=== PATIENT | female | born 2000 | race Hispanic/Latino ===

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

== ENCOUNTER 2019-12-03 07:37 | Inpatient (IN) | payer OTHER ==
[~2019-12-03] VITALS: Ht 162.6 cm; Wt 76.2 kg
[2019-12-03] MEDS ORDERED: KETOROLAC TROMETHAMINE 30 MG/ML VIAL IV STA (08:05)
[2019-12-03] MEDS ORDERED: SODIUM CHLORIDE 0.9% 1000ML 1,000 ML IV STA (08:05)
[2019-12-03 08:16] LABS: BASOPHILS # (AUTO) 0.1 (0.0-0.1); BASOPHILS % 0.3 % (0.0-1.0); EOSINOPHILS % 0.1 % (0.0-6.0); HEMATOCRIT 36.9 % (34.2-44.1); HEMOGLOBIN 12.8 g/dL (12.0-16.0); LYMPHOCYTES # (AUTO) 1.1 (1.0-3.2); LYMPHOCYTES % 6.2 % (18.0-39.1); MEAN CORPUSCULAR HEMOGLOBIN 31.1 pg (28-32); MEAN CORPUSCULAR HGB CONC 34.7 g/dL (31-35); MEAN CORPUSCULAR VOLUME 89.8 fL (81-99); MONOCYTES # (AUTO) 1.2 (0.2-0.8); NEUTROPHILS # (AUTO) 14.8 (2.1-6.9); NEUTROPHILS % 85.6 % (38.7-80.0); PLATELET COUNT 233 x10e3/uL (140-360); RED BLOOD COUNT 4.11 x10e6/uL (3.6-5.1); RED CELL DISTRIBUTION WIDTH 12.2 % (11.7-14.4)
[2019-12-03 08:20] LABS: CLARITY,URINE SL CLOUDY (CLEAR); COLOR,URINE YELLOW (YELLOW); LEUKOCYTE ESTERASE ,URINE NEGATIVE (NEGATIVE); NITRITE,URINE NEGATIVE (NEGATIVE); PROTEIN,URINE DIPSTICK 2+ (NEGATIVE)
[2019-12-03 08:21] LABS: BILIRUBIN,URINE MODERATE (NEGATIVE); KETONES,URINE 2+ (NEGATIVE); URINE UROBILINOGEN 1 mg/dL (0.2 - 1)
--- NOTE | 2019-12-03 08:29 | Emergency Department Note ---
History of Present Illnes History of Present Illness Chief Complaint: Abdominal Complaints History of Present Illness This is a 19 year old female arrives to the ED with lower abdominal pain, patient states pain began yesterday and is associated with a fever. Patient denies any nausea vomiting or diarrhea and states pain is primarily along the periumbilical region.. Historian: Patient, Family Member Arrival Mode: Car Onset (how long ago): day(s) Radiation: Reports non-radiation Severity: mild Onset quality: sudden Timing of current episode: constant Progression: unchanged Chronicity: new Relieving factors: none Exacerbating factors: none Past Medical/Family History Physician Review I have reviewed the patient's past medical and family history. Any updates have been documented here. Past Medical History Recent Fever: No Clinical Suspicion of Infectio: No New/Unexplained Change in Ment: No Past Medical History: None Past Surgical History: None Social History Smoking Cessation: Never Smoker Counseling Performed: No Alcohol Use: None Any Illegal Drug Use: No Physically hurt or threatened: No Other Last Tetanus: UTD Any Pre-Existing Lines (PICC,: No Review of Systems Review of Systems Constitutional: Reports no symptoms EENTM: Reports no symptoms Cardiovascular: Reports no symptoms Respiratory: Reports no symptoms Gastrointestinal: Reports as per HPI, Reports abdominal pain, Reports nausea Genitourinary: Reports no symptoms Musculoskeletal: Reports no symptoms Integumentary: Reports no symptoms Neurological: Reports no symptoms Psychological: Reports no symptoms Endocrine: Reports no symptoms Hematological/Lymphatic: Reports no symptoms Physical Exam Related Data Allergies: Coded Allergies: No Known Allergies (Unverified , 08/17/14) Triage Vital Signs Vital Signs Date Time Temp Pulse Resp B/P (MAP) Pulse Ox O2 Delivery O2 Flow Rate FiO2 12/03/19 07:48 99.3 114 14 117/78 99 Room Air Vital signs reviewed: Yes Physical Exam CONSTITUTIONAL Constitutional: Present well-developed, Present well-nourished HENT HENT: Present normocephalic, Present atraumatic, Present oropharynx clear/moist, Present nose normal HENT L/R: Present left ext ear normal, Present right ext ear normal EYES Eyes: Reports PERRL, Reports conjunctivae normal NECK Neck: Present ROM normal PULMONARY Pulmonary: Present effort normal, Present breath sounds normal CARDIOVASCULAR Cardiovascular: Present regular rhythm, Present heart sounds normal, Present capillary refill normal, Present normal rate GASTROINTESTINAL Abdominal: Present soft, Present nontender, Present bowel sounds normal GENITOURINARY Genitourinary: Present exam deferred SKIN Skin: Present warm, Present dry MUSCULOSKELETAL Musculoskeletal: Present ROM normal NEUROLOGICAL Neurological: Present alert, Present oriented x 3, Present no gross motor or sensory deficits PSYCHOLOGICAL Psychological: Present mood/affect normal, Present judgement normal Results Laboratory Lab results reviewed: Yes Imaging Imaging results reviewed: Yes Impressions IMPRESSION: Mild terminal ileal wall thickening, right lower quadrant mesenteric lymphadenopathy, and right lower quadrant fat stranding consistent with infectious or inflammatory etiology including inflammatory bowel disease. The above findings were discussed with Dr. Rivera on 12/03/2019 10:14 AM, who responded indicating that the communication was understood. Assessment & Plan Medical Decision Making MDM 19-year-old male arrives to the ED with complaints of abdominal pain, lab work showed marked leukocytosis. CT findings concerning for inflammatory process. No concerns of infectious etiology of pain and white count is likely reactive as covered with empiric antibiotics despite indication listed there is not a concern of infection at time of admission. Pt has no source of organ dysfunction. Assessment & Plan Final Impression: (1) IBS (irritable bowel syndrome) Depart Disposition: ADMITTED Last Vital Signs Date Time Temp Pulse Resp B/P (MAP) Pulse Ox O2 Delivery O2 Flow Rate FiO2 12/03/19 07:48 99.3 114 14 117/78 99 Room Air Home Meds Reported Medications Tramadol Hcl (ULTRAM) 50 Mg Tablet, 50 MG PO Q4HR PRN for ABDOMINAL PAIN, #10 TAB 08/17/14 Medications in the ED Sodium Chloride 1,000 ml @ 0 mls/hr Q0M STAT IV ; Start 12/03/19 at 08:05; Stop 12/03/19 at 08:07; Status DC Ketorolac Tromethamine 30 mg ONCE STAT IV ; Start 12/03/19 at 08:05; Stop 12/03/19 at 08:06; Status JEN DEMPSEY, Dec 03, 2019 08:29
[2019-12-03 08:34] LABS: BACTERIA,URINE MANY /HPF; EPITHELIAL CELLS,URINE MODERATE /LPF; RBC,URINE 0-5 /HPF (0-5)
[2019-12-03 08:40] LABS: ALANINE AMINOTRANSFERASE 28 IU/L (0-55); ALBUMIN 3.7 g/dL (3.5-5.0); ALBUMIN/GLOBULIN RATIO 0.9 (0.8-2.0); ALKALINE PHOSPHATASE 82 IU/L (40-150); ANION GAP 18.5 mmol/L (8-16); BLOOD UREA NITROGEN 9 mg/dL (7-26); BUN/CREATININE RATIO 10 (6-25); CARBON DIOXIDE 17 mmol/L (22-29); CHLORIDE 104 mmol/L (98-107); CREATININE, SERUM 0.92 mg/dL (0.57-1.11); EST GLOMERULAR FILTRATION RATE > 60 ML/MIN (60-); GLUCOSE 135 mg/dL (74-118); LIPASE 10 U/L (8-78); POTASSIUM 3.5 mmol/L (3.5-5.1); SODIUM 136 mmol/L (136-145)
--- NOTE | 2019-12-03 10:29 | Diagnostic Imaging Report ---
EXAM: CT Abdomen and Pelvis WITH intravenous contrast INDICATION: Abdominal pain COMPARISON: CT abdomen and pelvis of 08/09/2017 TECHNIQUE: Abdomen and pelvis were scanned utilizing a multidetector helical scanner from the lung base to the pubic symphysis after administration of IV contrast. Coronal and sagittal reformations were obtained. Routine protocol was performed. Scan was performed during portal venous phase. IV CONTRAST: 100mL of Isovue 370 ORAL CONTRAST: Water RADIATION DOSE: Total DLP: 334 mGy*cm Dose modulation, iterative reconstruction, and/or weight based adjustment of the mA/kV was utilized to reduce the radiation dose to as low as reasonably achievable. FINDINGS: LOWER THORAX: Normal. HEPATOBILIARY: No focal hepatic lesions. No biliary ductal dilatation. The gallbladder appears unremarkable. SPLEEN: No splenomegaly. PANCREAS: No focal masses or ductal dilatation. ADRENALS: No adrenal nodules. KIDNEYS/URETERS: No hydronephrosis, stones, or solid mass lesions. PELVIC ORGANS/BLADDER: Unremarkable. PERITONEUM / RETROPERITONEUM: No free air or fluid. LYMPH NODES: Right lower quadrant mesenteric lymphadenopathy measures up to 1.6 x 1.5 cm. Mild associated right lower quadrant fat stranding. VESSELS: Unremarkable. GI TRACT: Mild wall thickening of the terminal ileum. BONES AND SOFT TISSUES: No acute osseous injury. IMPRESSION: Mild terminal ileal wall thickening, right lower quadrant mesenteric lymphadenopathy, and right lower quadrant fat stranding consistent with infectious or inflammatory etiology including inflammatory bowel disease. The above findings were discussed with Dr. Rivera on 12/03/2019 10:14 AM, who responded indicating that the communication was understood. Signed by: Benigno Ramon MD on 12/03/2019 10:26 AM
[2019-12-03] MEDS ORDERED: CIPROFLOXACIN 400 MG/D5W 200ML 200 ML IV STA (10:31)
[2019-12-03] MEDS ORDERED: METRONIDAZOLE 250MG/NS 50ML 50 ML IV SCH (10:45)
[2019-12-03] MEDS: SODIUM CHLORIDE 0.9% 1000ML 1,000 ML IV SCH ×2 (11:05→19:32)
[2019-12-03] MEDS ORDERED: METRONIDAZOLE 500MG/NS 100ML 100 ML IV ONE ×2 (11:30→13:30)
[2019-12-03] MEDS ORDERED: SODIUM CHLORIDE 0.9% 50ML 50 ML ONE (11:42)
[2019-12-03] MEDS ORDERED: IOPAMIDOL 370 MG/ML 200 ML INFUS..BTL INJ ONE (11:42)
--- NOTE | 2019-12-03 12:12 | NUR ---
received to rm [id number] no distress noted,updated on poc voiced understanding, pt states she feels nausea md dr hong ortiz awaiting call back for orders, ivf infusing to r ac 20g no ss of infiltration noted, no other co voiced call light in reach will continue to monitor
[2019-12-03 12:45] VITALS: BP 111/71
--- NOTE | 2019-12-03 15:50 | NUR ---
PAGED DR. GASCA SPOKE WITH OLINDA AWAITING CALL BACK
--- NOTE | 2019-12-03 16:52 | NUR ---
Patient seen and evaluated History of Present Illness: 19-year-old lady who presented to emergency department complaining of lower abdominal pain which is been going on during the last day, associated with fever. Patient denies nausea, vomiting or diarrhea. Denies chest pain or shortness of breath. No history of inflammatory bowel disease. No rectal bleeding. Past medical history: Unremarkable medical history with no significant medical problems. Past surgical history: None Family history: Patient's mother is 38 years old in good health. Father is on his mid 40s and in good health. Does have 2 siblings which are healthy. Social history: No tobacco or alcohol abuse. Allergies: No known drug allergies that I am aware. Review of systems: Constitutional: No fever no chills Cardiovascular: No chest pain. Respiratory: No shortness of breath no hemoptysis GI: See present history. : No dysuria Neuro: No dizziness, no ataxia, no focal weakness Skin: No rashes Hematological system: No bruises Psych: No anxiety or depression Physical exam: Irregular patient alert oriented to person time place the patient was in no distress. Vital signs blood pressure 117/78, respiration 14, pulse 114, temperature 99.3 Constitutional: He is oriented to person, place, and time. He appears well-developed. HEENT: Head: Normocephalic and atraumatic. Cardiovascular: Regular rhythm, no murmurs, no rubs, no gallops. Pulmonary/Chest: Clear bilaterally, no rales, no rhonchi. Abdominal: Soft, nontender, bowel sounds positive and normal. No distention, no guarding, no rebound. Musculoskeletal: Normal range of motion. Extremities: No edema, no clubbing. Neurological: He is alert and oriented to person, place, and time. Skin: Skin is warm and dry. Psychiatric: He has a normal mood and affect. Lab data: CBC disclosed: Hemoglobin 12.8, WBC 17.26, platelet count 233,000 Rahda profile, revealed sodium 136, potassium 3.5, chloride 104, CO2 17, BUN 9, creatinine 0.82, liver function tests were normal. CT scan of the abdomen: IMPRESSION: Mild terminal ileal wall thickening, right lower quadrant mesenteric lymphadenopathy, and right lower quadrant fat stranding consistent with infectious or inflammatory etiology including inflammatory bowel disease. The above findings were discussed with Dr. Rivera on 12/03/2019 10:14 AM, who responded indicating that the communication was understood. Signed by: Benigno Ramon MD on 12/03/2019 10:26 AM Assessment: 1. Abdominal pain in the lower quadrants with CAT scan of the findings suggestive of infectious/inflammatory etiology, unclear. Inflammatory bowel disease is a consideration. 2. Leukocytosis. Plan of care: 1. IV fluids. 2. IV antibiotics consisting of Cipro and Flagyl intravenously. 3. GI consultation requested with Dr. Garcia 4. DVT prophylaxis 5. Pain control
[2019-12-03] MEDS ORDERED: MORPHINE SULFATE INJ 4 MG/ML INJ 1ML IV PRN (17:00)
--- NOTE | 2019-12-03 17:00 | NUR ---
PT WITH FEVER OF 101.2, BLANKETS REMOVED FROM PT, TEMPERATURE TURNED DOWN IN ROOM, DR ALLAN PAGED RE: FEVER AWAITING CALL BACK
[2019-12-03 17:03] VITALS: BP 114/74
--- NOTE | 2019-12-03 19:00 | NUR ---
RECEIVED PATIENT IN BEDSIDE SHIFT REPORT. PATIENT REPORTS PAIN 8/10, WILL MEDICATE. AWAITING TYLENOL TO BE VERIFIED TO GIVE FOR FEVER. NO S&S OF DISTRESS NOTED. BED LOCKED IN LOWEST POSITION, SIDE RAILS UPX2, CALL LIGHT IN REACH.
[2019-12-03 19:20] VITALS: BP 106/56
[2019-12-03] MEDS ORDERED: SODIUM CHLORIDE 0.9% 1000ML 1,000 ML ONE (19:30)
[2019-12-03] MEDS: ONDANSETRON HCL INJ 2MG/ML 2ML 2 MG/ML VIAL IV PRN (19:33)
[2019-12-03] MEDS: ACETAMINOPHEN 325 MG TAB PO PRN (19:40)
[2019-12-03 19:59] VITALS: BP 106/56
--- OUTSIDE RECORDS SUMMARY | 2019-12-03 21:09 | XMS REPORT | Continuity of Care Document ---
Author Author [facility] t Organization [facility] Address [address] [place] [address] Phone Unavailable Care Team Providers Care Biometric Fingerprinting Technician Name Role Phone NONSTAFF PCP Unavailable Lexa DAVIS Attphys Unavailable Cristina FAITH Attphys Unavailable Payers Payer Name Policy Type Policy Number Effective Date Expiration Date Lexa renee [facility] [id number] [facility] [id number] [facility] Problems Condition Name Condition Details Condition Category Status Onset Date Resolution Date Last Treatment Date Treating Clinician Comments Source Colitis Problem Active [facility] Irritable bowel syndrome Problem Active [facility] Allergies, Adverse Reactions, Alerts This patient has no known allergies or adverse reactions. Social History Social Habit Start Date Stop Date Quantity Comments Source Sex Assigned At 2000 00:00:00 2000 00:00:00 Female [facility] Medications Ordered Medication Name Filled Medication Name Start Date Stop Da te Current Medication? Ordering Clinician Indication Dosage Frequency Signature (SIG) Comments Components Source Tramadol Hcl (Ultram) 50 Mg TABLET Tramadol Hcl (Ultram) 50 Mg TABLET Yes 50 Every 4 Hours as needed for Abdominal Pain [facility] Vital Signs Vital Name Observation Time Observation Value Comments Source Body Temperature 2019-12-03 11:54:00 98.8 [degF] [facility] Weight 2019-12-03 07:48:00 135 [lb_av] [facility] BMI (Body Mass Index) 2019-12-03 07:48:00 23.9 kg/m2 [facility] Procedures Procedure Date / Time Performed Performing Clinician Deborah tai Computed tomography of abdomen and pelvis with contrast 00:00:00 [facility] Encounters Start Date/Time End Date/Time Encounter Type Admission Type Attendi [facility] Care Department Encounter ID Source 2019-12-03 08:00:00 2019-12-03 12:21:00 Departed Emergency Room [address] [facility] [id number] [facility] 2017-08-09 19:39:00 2017-08-09 22:23:00 Departed Emergency Room ER MARIAJOSE FAITH [facility] [id number] [facility] Results Test Description Test Time Test Comments Results Result Comments Source CT ABDOMEN/PELVIS W 2019-12-03 10:14:00 [place] [address] Patient Name: ROSARIO PHAM MR #: [id number] : 2000 Age/Sex: 19/F Req #: [id number] Adm Physician: Ordered by: JEN DAVIS DO Report #: [id number] Location: ER Room/Bed: Procedure: [id number] CT/CT ABDOMEN/PELVIS W Exam Date: 12/03/19 Exam Time: 950 REPORT STATUS: Signed EXAM: CT Abdomen and Pelvis WITH intravenous contrast INDICATION: Abdominal pain COMPARISON: CT abdomen and pelvis of 08/09/2017 TECHNIQUE: Abdomen and pelvis were scanned utilizing a multidetector helical scanner from the lung base to the pubic symphysis after administration of IV contrast. Coronal and sagittal reformations were obtained. Routine protocol was performed. Scan was performed during portal venous phase. IV CONTRAST: 100mL of Isovue 370 ORAL CONTRAST: Water RADIATION DOSE: Total DLP: 334 mGy*cm Dose modulation, iterative reconstruction, and/or weight based adjustment of the mA/kV was utilized to reduce the radiation dose to as low as reasonably achievable. FINDINGS: LOWER THORAX: Normal. HEPATOBILIARY: No focal hepatic lesions. No biliary ductal dilatation. The gallbladder appears unremarkable. SPLEEN: No splenomegaly. PANCREAS: No focal masses or ductal dilatation. ADRENALS: No adrenal nodules. KIDNEYS/URETERS: No hydronephrosis, stones, or solid mass lesions. PELVIC ORGANS/BLADDER: Unremarkable. PERITONEUM / RETROPERITONEUM: No free air or fluid. LYMPH NODES: Right lower quadrant mesenteric lymphadenopathy measures up to 1.6 x 1.5 cm. Mild associated right lower quadrant fat stranding. VESSELS: Unremarkable. GI TRACT: Mild wall thickening of the terminal ileum. BONES AND SOFT TISSUES: No acute osseous injury. IMPRESSION: Mild terminal ileal wall thickening, right lower quadrant mesenteric lymphadenopathy, and right lower quadrant fat stranding consistent with infectious or inflammatory etiology including inflammatory bowel disease. The above findings were discussed with Dr. Davis on 12/03/2019 10:14 AM, who responded indicating that the communication was understood. Signed by: Tien Ramon MD on 12/03/2019 10:26 AM Dictated By: TIEN RAOMN MD 1026 Transcribed By: DIVINE on 12/03/19 1026 COPY TO: JEN DAVIS, Blood leukocytes automated count (number/volume) 2019-12-03 07:57:00 Test Item White Blood Count (test code = 6690-2) 17.26 4.8-10.8 [facility] erythrocytes automated count (number/volume)2019-12-03 07:57:00* Test Item Value Reference Range Interpretation Comments Red Blood Count (test code = 789-8) 4.11 3.6-5.1 [facility] HospitalBlood hemoglobin measurement (moles/volume)2019-12-03 07:57:00* Test Item Value Reference Range Interpretation Comments Hemoglobin (test code = 48315-7) 12.8 12.0-16.0 [facility] HospitalAutomated blood hematocrit (volume fraction)2019-12-03 07:57:00* Test Item Value Reference Range Interpretation Comments Hematocrit (test code = 4544-3) 36.9 34.2-44.1 [facility] HospitalAutomated erythrocyte mean corpuscular jouokd1654-17-50 07:57:00* Test Item Value Reference Range Interpretation Comments Mean Corpuscular Volume (test code = 787-2) 89.8 81-99 [facility] HospitalAutomated erythrocyte mean corpuscular hemoglobin (mass per erythrocyte)2019-12-03 07:57:00* Test Item Value Reference Range Interpretation Comments Mean Corpuscular Hemoglobin (test code = 785-6) 31.1 28-32 [facility] HospitalAutformerly [facility] eryth[facility] mean corpuscular hemoglobin concentration measurement (mass/volume)2019-12-03 07:57:00* Test Item Value Reference Range Interpretation Comments Mean Corpuscular Hemoglobin Concent (test code = 786-4) 34.7 31-35 [facility] HospitalRDW GeeUa-Ttc0133-93-31 07:57:00* Test Item Value Reference Range Interpretation Comments Red Cell Distribution Width (test code = 05726-2) 12.2 11.7 -14.4 [facility] HospitalAut[facility] blood platelet count (count/volume)2019-12-03 07:57:00* Test Item Value Reference Range Interpretation Comments Platelet Count (test code = 777-3) 233 140-360 [facility] HospitalAutomated blood segmented neutrophil count as percentage of total fnvishqosi5609-74-77 07:57:00* Test Item Value Reference Range Interpretation Comments Neutrophils (%) (Auto) (test code = 07232-8) 85.6 38.7-80.0 [facility] HospitalAutomated blood lymphocyte count as percentage ot total yrzmbyomhb6650-38-08 07:57:00* Test Item Value Reference Range Interpretation Comments Lymphocytes (%) (Auto) (test code = 736-9) 6.2 18.0-39.1 [facility] HospitalAutomated blood monocyte count as percentage of total mjjfqzaclq7620-07-10 07:57:00* Test Item Value Reference Range Interpretation Comments Monocytes (%) (Auto) (test code = 5905-5) 7.0 4.4-11.3 [facility] HospitalAutomated blood eosinophil count as percentage of total wkvwpfurpd6080-98-38 07:57:00* Test Item Value Reference Range Interpretation Comments Eosinophils (%) (Auto) (test code = 713-8) 0.1 0.0-6.0 [facility] HospitalAutomated blood basophil count as percentage of total qcckykupda1127-55-55 07:57:00* Test Item Value Reference Range Interpretation Comments Basophils (%) (Auto) (test code = 706-2) 0.3 0.0-1.0 [facility] HospitalFluoroscopic procedure less than one hour vvfskkzd0559-88-42 07:57:00* Test Item Value Reference Range Interpretation Comments IM GRANULOCYTES % (test code = IM GRANULOCYTES %) 0.8 0.0- 1.0 [facility] HospitalAutomated blood neutrophil count 2019-12-03 07:57:00* Test Item Value Reference Range Interpretation Comments Neutrophils # (Auto) (test code = 751-8) 14.8 2.1-6.9 [facility] HospitalBlood lymphocytes count (number/volume) 2019-12-03 07:57:00* Test Item Value Reference Range Interpretation Comments Lymphocytes # (Auto) (test code = 31626-8) 1.1 1.0-3.2 [facility] HospitalBlood monocytes automated count (number/volume)2019-12-03 07:57:00* Test Item Value Reference Range Interpretation Comments Monocytes # (Auto) (test code = 742-7) 1.2 0.2-0.8 [facility] HospitalAutomated blood eosinophil count 2019-12-03 07:57:00* Test Item Value Reference Range Interpretation Comments Eosinophils # (Auto) (test code = 711-2) 0.0 0.0-0.4 [facility] HospitalAutomated blood basophil count (count/volume)2019-12-03 07:57:00* Test Item Value Reference Range Interpretation Comments Basophils # (Auto) (test code = 704-7) 0.1 0.0-0.1 [facility] HospitalFluoroscopic procedure less than one hour vjdxrgpq7105-64-39 07:57:00* Test Item Value Reference Range Interpretation Comments Absolute Immature Granulocyte (auto (blanca t code = Absolute Immature Granulocyte (auto) 0.13 0-0.1 [facility] HospitalUrine color xxeshxolbnbha5825-18-26 07:57:00* Test Item Value Reference Range Interpretation Comments Urine Color (test code = 5778-6) YELLOW YELLOW [facility] HospitalUrine ltjeuim9952-16-19 07:57:00* Test Item Value Reference Range Interpretation Comments Urine Clarity (test code = 46523-1) SL CLOUDY CLEAR [facility] Urine by Test strip 2019-12-03 07:57:00* Test Item Value Reference Range Interpretation Comments Urine Specific [place] (test code = 5811-5) >=1.030 1.010-1.02 5 [facility] HospitalUrine pH measurement by automated test tcjsi3321-28-04 07:57:00* Test Item Value Reference Range Interpretation Comments Urine pH (test code = 24490-7) 5 5-7 [facility] HospitalUrine leukocyte esterase detection by vrldaovg7997-92-57 07:57:00* Test Item Value Reference Range Interpretation Comments Urine Leukocyte Esterase (test code = 5799-2) NEGATIVE NEGATIVE [facility] HospitalUrine nitrite ncivnzdbk6559-73-32 07:57:00* Test Item Value Reference Range Interpretation Comments Urine Nitrite (test code = 87015-7) NEGATIVE NEGATIVE [facility] HospitalUrine protein measurement by test strip (mass/volume)2019-12-03 07:57:00* Test Item Value Reference Range Interpretation Comments Urine Protein (test code = 5804-0) 2+ NEGATIVE [facility] HospitalUrine glucose dmclriirr7227-42-06 07:57:00* Test Item Value Reference Range Interpretation Comments Urine Glucose (UA) (test code = 2349-9) NEGATIVE NEGATIVE [facility] HospitalUrine ketones detection by automated test pccya1643-17-77 07:57:00* Test Item Value Reference Range Interpretation Comments Urine Ketones (test code = 27748-1) 2+ NEGATIVE [facility] HospitalUrine urobilinogen measurement by test strip (mass/volume)2019-12-03 07:57:00* Test Item Value Reference Range Interpretation Comments Urine Urobilinogen (test code = 16194-6) 1 0.2-1 [facility] HospitalUrine total bilirubin measurement (mass/volume)2019-12-03 07:57:00* Test Item Value Reference Range Interpretation Comments Urine Bilirubin (test code = 1978-6) MODERATE NEGATIVE [facility] HospitalUrine erythrocytes asfzdjqsl0057-32-45 07:57:00* Test Item Value Reference Range Interpretation Comments Urine Blood (test code = 64200-2) 1+ NEGATIVE [facility] HospitalAutomated urine sediment leukocyte count by microscopy (number/high power field)2019-12-03 07:57:00* Test Item Value Reference Range Interpretation Comments Urine WBC (test code = 5821-4) 11-20 0-5 [facility] HospitalErythrocytes detection in urine sediment by light ssognfkvji9513-85-02 07:57:00* Test Item Value Reference Range Interpretation Comments Urine RBC (test code = 52896-0) 0-5 0-5 [facility] HospitalBacteria detection in urine sediment by light fbgjublopy1113-77-36 07:57:00* Test Item Value Reference Range Interpretation Comments Urine Bacteria (test code = 79958-7) MANY NONE [facility] HospitalEpithelial cells detection in urine sediment by light qhdhxbgant5801-90-63 07:57:00* Test Item Value Reference Range Interpretation Comments Urine Epithelial Cells (test code = 79781-3) MODERATE NONE [facility]ere[facility] or plasma sodium measurement (moles/volume)2019-12-03 07:57:00* Test Item Value Reference Range Interpretation Comments Sodium Level (test code = 2951-2) 136 136-145 [facility]ererum or plasma potassium measurement (moles/volume)2019-12-03 07:57:00* Test Item Value Reference Range Interpretation Comments Potassium Level (test code = 2823-3) 3.5 3.5-5.1 [facility]ererum or plasma chloride measurement (moles/volume)2019-12-03 07:57:00* Test Item Value Reference Range Interpretation Comments Chloride Level (test code = 2075-0) 104 98-107 [facility]ererum or plasma carbon dioxide, total measurement (moles/volume)2019-12-03 07:57:00* Test Item Value Reference Range Interpretation Comments Carbon Dioxide Level (test code = 2028-9) 17 22-29 [facility]ererum or plasma anion fgh3474-59-70 07:57:00* Test Item Value Reference Range Interpretation Comments Anion Gap (test code = 13520-8) 18.5 8-16 [facility]ererum or plasma urea nitrogen measurement (mass/volume)2019-12-03 07:57:00* Test Item Value Reference Range Interpretation Comments Blood Urea Nitrogen (test code = 3094-0) 9 7-26 [facility]ererum or plasma creatinine measurement (mass/volume)2019-12-03 07:57:00* Test Item Value Reference Range Interpretation Comments Creatinine (test code = 2160-0) 0.92 0.57-1.11 [facility]ererum or plasma urea nitrogen/creatinine mass tfiiw4605-00-21 07:57:00* Test Item Value Reference Range Interpretation Comments BUN/Creatinine Ratio (test code = 3097-3) 10 6-25 [facility] HospitalEstimated glomerular filtration rate (GFR) ukzqyfrvmfbrf5942-19-98 07:57:00* Test Item Value Reference Range Interpretation Comments Estimat Glomerular Filtration Rate (test code = 714753240) > 60 >60 Ranges were taken from the National Kidney Disease Education Program and the [facility] Kid[facility] Foundation literature.Reference ranges:60 or greater: Bwwynf33-94 ( for 3 consecutive months): Chronic kidney disease 15 or less: Kidney failureHill Country Memorial HospitalGlucose jbrodcodzwu4789-78-99 07:57:00* Test Item Value Reference Range Interpretation Comments Glucose Level (test code = AIC2445) 135 74-118 [facility]ererum or plasma calcium measurement (mass/volume)2019-12-03 07:57:00* Test Item Value Reference Range Interpretation Comments Calcium Level (test code = 32095-3) 9.0 8.4-10.2 [facility]ererum or plasma total bilirubin measurement (mass/volume)2019-12-03 07:57:00* Test Item Value Reference Range Interpretation Comments Total Bilirubin (test code = 1975-2) 0.7 0.2-1.2 [facility] HospitalFluoroscopic procedure less than one hour eenvbyhv1665-66-68 07:57:00* Test Item Value Reference Range Interpretation Comments Aspartate Amino Transf (AST/SGOT) (test code = Aspartate Amino Transf (AST/SGOT)) 19 5-34 [facility]ererum or plasma alanine aminotransferase measurement (enzymatic activity/volume)2019-12-03 07:57:00* Test Item Value Reference Range Interpretation Comments Alanine Aminotransferase (ALT/SGPT) (test code = 1742-6) 28 0-55 [facility]ererum or plasma protein measurement (mass/volume)2019-12-03 07:57:00* Test Item Value Reference Range Interpretation Comments Total Protein (test code = 2885-2) 7.9 6.5-8.1 [facility]ererum or plasma albumin measurement (mass/volume)2019-12-03 07:57:00* Test Item Value Reference Range Interpretation Comments Albumin (test code = 1751-7) 3.7 3.5-5.0 [facility] HospitalPlasma globulin measurement (mass/volume) 2019-12-03 07:57:00* Test Item Value Reference Range Interpretation Comments Globulin (test code = 72918-8) 4.2 2.3-3.5 [facility]rum or plasma albumin/globulin mass ygaou2549-34-09 07:57:00* Test Item Value Reference Range Interpretation Comments Albumin/Globulin Ratio (test code = 1759-0) 0.9 0.8-2.0 [facility]ererum or plasma alkaline phosphatase measurement (enzymatic activity/volume)2019-12-03 07:57:00* Test Item Value Reference Range Interpretation Comments Alkaline Phosphatase (test code = 6768-6) 82 40-150 [facility]ererum or plasma lipase measurement (enzymatic activity/volume)2019-12-03 07:57:00* Test Item Value Reference Range Interpretation Comments Lipase (test code = 3040-3) 10 8-78 [facility]ererum or plasma choriogonadotropin ( test) klpjqgktg4452-73-92 07:57:00* Test Item Value Reference Range Interpretation Comments Human Chorionic Gonadotropin, Qual (test code = 2118-8) NEGATIVE NEGATIVE [facility] HospitalUrine Zdelt0068-15-82 21:14:00* Test Item Value Reference Range Interpretation Comments Urine Color (test code = 5778-6) YELLOW YELLOW [facility] HospitalUrine Dcecisy1153-45-55 21:14:00* Test Item Value Reference Range Interpretation Comments Urine Clarity (test code = 40565-8) CLEAR CLEAR [facility] HospitalUrine Specific Bddlzpl5953-18-53 21:14:00 * Test Item Value Reference Range Interpretation Comments Urine Specific [place] (test code = 5811-5) 1.020 1.010-1.02 5 [facility] HospitalUrine gO3757-47-06 21:14:00* Test Item Value Reference Range Interpretation Comments Urine pH (test code = 30156-1) 7 5-7 [facility] HospitalUrine Leukocyte Nynnqlar1685-27-78 21:14:00* Test Item Value Reference Range Interpretation Comments Urine Leukocyte Esterase (test code = 5799-2) NEGATIVE NEGATIVE [facility] HospitalUrine Tqacaxg5191-83-64 21:14:00* Test Item Value Reference Range Interpretation Comments Urine Nitrite (test code = 42451-5) NEGATIVE NEGATIVE [facility] HospitalUrine Rsmuecd1676-13-61 21:14:00* Test Item Value Reference Range Interpretation Comments Urine Protein (test code = 5804-0) NEGATIVE NEGATIVE [facility] HospitalUrine Glucose (UA)2017-08-09 21:14:00* Test Item Value Reference Range Interpretation Comments Urine Glucose (UA) (test code = 2349-9) NEGATIVE NEGATIVE [facility] HospitalUrine Cktutgg3086-50-19 21:14:00* Test Item Value Reference Range Interpretation Comments Urine Ketones (test code = 68760-2) NEGATIVE NEGATIVE [facility] HospitalUrine Tqdzsyevrprb1778-20-73 21:14:00* Test Item Value Reference Range Interpretation Comments Urine Urobilinogen (test code = 33050-0) 0.2 0.2-1 [facility] HospitalUrine Huyasllxx1282-80-23 21:14:00* Test Item Value Reference Range Interpretation Comments Urine Bilirubin (test code = 1978-6) NEGATIVE NEGATIVE [facility] HospitalUrine Cwzzo5194-37-28 21:14:00* Test Item Value Reference Range Interpretation Comments Urine Blood (test code = 72053-7) NEGATIVE NEGATIVE [facility] HospitalUrine HCO9779-12-11 21:14:00* Test Item Value Reference Range Interpretation Comments Urine WBC (test code = 5821-4) 0-5 0-5 [facility] HospitalUrine NGK3597-56-11 21:14:00* Test Item Value Reference Range Interpretation Comments Urine RBC (test code = 72523-5) 0-5 0-5 [facility] HospitalUrine Jpprzpzi1617-40-69 21:14:00* Test Item Value Reference Range Interpretation Comments Urine Bacteria (test code = 93396-2) FEW NONE [facility] HospitalUrine Epithelial Ogofe6552-97-75 21:14:00 * Test Item Value Reference Range Interpretation Comments Urine Epithelial Cells (test code = 93898-8) FEW NONE [facility] HospitalUrine Bybv7171-05-22 20:53:00* Test Item Value Reference Range Interpretation Comments Urine Test (test code = 2106-3) NEGATIVE NEGATIVE [facility] HospitalWhite Blood Oqdce8448-85-27 20:40:00* Test Item Value Reference Range Interpretation Comments White Blood Count (test code = 6690-2) 8.59 4.8-10.8 [facility] HospitalRed Blood Geteh4916-84-80 20:40:00* Test Item Value Reference Range Interpretation Comments Red Blood Count (test code = 789-8) 4.23 3.6-5.1 [facility] HospitalHemoglobin2018-04-07 20:40:00* Test Item Value Reference Range Interpretation Comments Hemoglobin (test code = 14584-6) 13.3 12.0-16.0 [facility] HospitalHematocrit2018-04-07 20:40:00* Test Item Value Reference Range Interpretation Comments Hematocrit (test code = 4544-3) 38.3 34.2-44.1 [facility] HospitalMean Corpuscular Celphr1744-42-48 20:40:00* Test Item Value Reference Range Interpretation Comments Mean Corpuscular Volume (test code = 787-2) 90.5 81-99 [facility] HospitalMean Corpuscular Otwzoqistk2318-39-21 20:40:00* Test Item Value Reference Range Interpretation Comments Mean Corpuscular Hemoglobin (test code = 785-6) 31.4 28-32 [facility] HospitalMean Corpuscular Hemoglobin Concent 2017-08-09 20:40:00* Test Item Value Reference Range Interpretation Comments Mean Corpuscular Hemoglobin Concent (test code = 786-4) 34.7 31-35 [facility] HospitalRed Cell Distribution Irsgc3570-01-42 20:40:00* Test Item Value Reference Range Interpretation Comments Red Cell Distribution Width (test code = 05440-1) 12.3 11.7 -14.4 [facility] HospitalPlatelet Wrpnr9318-57-13 20:40:00* Test Item Value Reference Range Interpretation Comments Platelet Count (test code = 777-3) 296 140-360 [facility] HospitalNeutrophils (%) (Auto)2017-08-09 20:40:00 * Test Item Value Reference Range Interpretation Comments Neutrophils (%) (Auto) (test code = 17077-1) 56.8 38.7-80.0 [facility] HospitalLymphocytes (%) (Auto)2017-08-09 20:40:00 * Test Item Value Reference Range Interpretation Comments Lymphocytes (%) (Auto) (test code = 736-9) 35.5 18.0-39.1 [facility] HospitalMonocytes (%) (Auto)2017-08-09 20:40:00* Test Item Value Reference Range Interpretation Comments Monocytes (%) (Auto) (test code = 5905-5) 6.6 4.4-11.3 [facility] HospitalEosinophils (%) (Auto)2017-08-09 20:40:00 * Test Item Value Reference Range Interpretation Comments Eosinophils (%) (Auto) (test code = 713-8) 0.6 0.0-6.0 [facility] HospitalBasophils (%) (Auto)2017-08-09 20:40:00* Test Item Value Reference Range Interpretation Comments Basophils (%) (Auto) (test code = 706-2) 0.3 0.0-1.0 [facility] HospitalIM GRANULOCYTES %2017-08-09 20:40:00* Test Item Value Reference Range Interpretation Comments IM GRANULOCYTES % (test code = IM GRANULOCYTES %) 0.2 0.0- 1.0 [facility] HospitalNeutrophils # (Auto)2017-08-09 20:40:00* Test Item Value Reference Range Interpretation Comments Neutrophils # (Auto) (test code = 751-8) 4.9 2.1-6.9 [facility] HospitalLymphocytes # (Auto)2017-08-09 20:40:00* Test Item Value Reference Range Interpretation Comments Lymphocytes # (Auto) (test code = 56279-4) 3.1 1.0-3.2 [facility] HospitalMonocytes # (Auto)2017-08-09 20:40:00* Test Item Value Reference Range Interpretation Comments Monocytes # (Auto) (test code = 742-7) 0.6 0.2-0.8 [facility] HospitalEosinophils # (Auto)2017-08-09 20:40:00* Test Item Value Reference Range Interpretation Comments Eosinophils # (Auto) (test code = 711-2) 0.1 0.0-0.4 [facility] HospitalBasophils # (Auto)2017-08-09 20:40:00* Test Item Value Reference Range Interpretation Comments Basophils # (Auto) (test code = 704-7) 0.0 0.0-0.1 [facility] HospitalAbsolute Immature Granulocyte (auto 2017-08-09 20:40:00* Test Item Value Reference Range Interpretation Comments Absolute Immature Granulocyte (auto (blanca t code = Absolute Immature Granulocyte (auto) 0.02 0-0.1 [facility] Centerodium Wmcks2859-78-51 20:39:00* Test Item Value Reference Range Interpretation Comments Sodium Level (test code = 2951-2) 137 136-145 [facility] [facility]Potassium [id number] 20:39:00* Test Item Value Reference Range Interpretation Comments Potassium Level (test code = 2823-3) 3.8 3.5-5.1 [facility] HospitalChloride Yjnrq5600-64-97 20:39:00* Test Item Value Reference Range Interpretation Comments Chloride Level (test code = 2075-0) 104 98-107 [facility] HospitalCarbon Dioxide Cnbsr4754-32-68 20:39:00* Test Item Value Reference Range Interpretation Comments Carbon Dioxide Level (test code = 2028-9) 25 22-29 [facility] HospitalAnion Yuq2679-96-12 20:39:00* Test Item Value Reference Range Interpretation Comments Anion Gap (test code = 79428-7) 11.8 8-16 [facility] HospitalBlood Urea Rxwkdivu9691-15-14 20:39:00* Test Item Value Reference Range Interpretation Comments Blood Urea Nitrogen (test code = 3094-0) 11 7-26 [facility] HospitalCreatinine2018-04-07 20:39:00* Test Item Value Reference Range Interpretation Comments Creatinine (test code = 2160-0) 0.72 0.57-1.11 [facility] HospitalBUN/Creatinine Uuxfx8511-58-08 20:39:00* Test Item Value Reference Range Interpretation Comments BUN/Creatinine Ratio (test code = 3097-3) 15 6-25 [facility] HospitalEstimat Glomerular Filtration Rate 2017-08-09 20:39:00* Test Item Value Reference Range Interpretation Comments Estimat Glomerular Filtration Rate (test code = 65226-7) 60- >60 Ranges were taken from the National Kidney Disease Education Program and the [facility] literature.Reference ranges:60 or greater: Zrfbxl51-89 ( for 3 consecutive months): Chronic kidney disease 15 or less: Kidney failureHill Country Memorial HospitalGlucose Ckvyz9395-27-06 20:39:00* Test Item Value Reference Range Interpretation Comments Glucose Level (test code = HAA8539) 87 74-118 [facility] HospitalCalcium Kovds2889-05-48 20:39:00* Test Item Value Reference Range Interpretation Comments Calcium Level (test code = 72098-8) 9.4 8.4-10.2 [facility] HospitalTotal Jimmfdvsm0560-79-82 20:39:00* Test Item Value Reference Range Interpretation Comments Total Bilirubin (test code = 1975-2) 0.2 0.2-1.2 [facility] HospitalAspartate Amino Transf (AST/SGOT) 2017-08-09 20:39:00* Test Item Value Reference Range Interpretation Comments Aspartate Amino Transf (AST/SGOT) (test code = Aspartate Amino Transf (AST/SGOT)) 25 5-34 [facility] HospitalAlanine Aminotransferase (ALT/SGPT) 2017-08-09 20:39:00* Test Item Value Reference Range Interpretation Comments Alanine Aminotransferase (ALT/SGPT) (test code = 1742-6) 25 0-55 [facility] HospitalTotal Xvnwlvz9197-56-61 20:39:00* Test Item Value Reference Range Interpretation Comments Total Protein (test code = 2885-2) 7.6 6.5-8.1 [facility] HospitalAlbumin2018-04-07 20:39:00* Test Item Value Reference Range Interpretation Comments Albumin (test code = 1751-7) 4.1 3.5-5.0 [facility] HospitalGlobulin2018-04-07 20:39:00* Test Item Value Reference Range Interpretation Comments Globulin (test code = 66216-1) 3.5 2.3-3.5 [facility] HospitalAlbumin/Globulin Xmbit8910-52-68 20:39:00 * Test Item Value Reference Range Interpretation Comments Albumin/Globulin Ratio (test code = 1759-0) 1.2 0.8-2.0 [facility] HospitalAlkaline Yyojtxminqr4119-67-30 20:39:00* Test Item Value Reference Range Interpretation Comments Alkaline Phosphatase (test code = 6768-6) 70 40-150 [facility] HospitalCT [facility] [address] [address] Patient Name: RSOARIO PHAM MR #: [id number] : 2000 Age/Sex: 16/F Req #: [id number] Adm Physician: Ordered by: MARIAJOSE FAITH MD Report #: [id number] Location: ER Room/Bed: Procedure: [id number] CT/CT ABDOMEN/PELVIS W E xam Date: 08/09/17 Exam Time: 2100 REPORT STATU S: Signed EXAM: CT Abdomen and Pelvis WITH contrast INDICATION: Right low er quadrant pain. COMPARISON: None. TECHNIQUE: Abdomen and pelvis were scann ed utilizing a multidetector helical scanner from the lung base to the pubic s ymphysis after administration of IV contrast. Coronal and sagittal reformation s were obtained. Routine protocol was performed. Scan was performed when durin g portal venous phase. IV CONTRAST: 100 mL of Isovue-370 ORAL CONTRAST: Water RADIATION DOSE: Total DLP: 295.83 mGy*cm Estimated effective dose: (DLP x 0.015 x size factor) mSv COMPLICATIONS: None FINDINGS: LINES and TUBES: None. LOWE R THORAX: Unremarkable HEPATOBILIARY: No focal hepatic lesions. No bi liary ductal dilation. GALLBLADDER: No radio-opaque stones or sludge. No wall thickening. SPLEEN: No splenomegaly. PANCREAS: No focal masses o r ductal dilatation. ADRENALS: No adrenal nodules KIDNEYS/URETER S: Kidneys enhance symmetrically. No hydronephrosis. No cystic or solid mass lesions. No stones. GI TRACT: No abnormal distention, wall thickening, or evidence of bowel obstruction. Appendix is normal. PELVIC ORGANS/BL ADDER: Fat stranding adjacent to the right ovary and right adnexum. 1.9 cm per ipherally enhancing cystic lesion in the ovary. The left ovary and uterus appe ar unremarkable. LYMPH NODES: No lymphadenopathy. VESSELS: Unremarkabl e. PERITONEUM / RETROPERITONEUM: Right lower quadrant and right hemipelvic fat stranding adjacent to the appendix. The appendix however appears normal. T race of free pelvic fluid is present BONES: Unremarkable. SOFT TISSU ES: Unremarkable. IMPRESSION: 1. Findings are compatible wi th right-sided inflammatory suggestive of pelvic inflammatory disease. 2. A ppendix is unremarkable. Signed by: Dr. Sacha Rizvi M.D. on 08/09/2017 9:50 PM Dictated By: SACHA MILLS MD 47 Transcribed By: DIVINE on 08/09/172149 COPY TO: MARIAJOSE FAITH MD
--- OUTSIDE RECORDS SUMMARY | 2019-12-03 21:27 | XMS REPORT | Continuity of Care Document ---
Author Author [facility] t Organization [facility] Address [address] [place] [address] Phone Unavailable Care Team Providers Care Customer Engineering Specialist Name Role Phone NONSTAFF PCP Unavailable Lexa DAVIS Attphys Unavailable Cristina FAITH Attphys Unavailable Payers Payer Name Policy Type Policy Number Effective Date Expiration Date Lexa renee [facility] [id number] [facility] [id number] [facility] Problems Condition Name Condition Details Condition Category Status Onset Date Resolution Date Last Treatment Date Treating Clinician Comments Source Colitis Problem Active [facility] Irritable bowel syndrome Problem Active [facility] Allergies, Adverse Reactions, Alerts This patient has no known allergies or adverse reactions. Social History Social Habit Start Date Stop Date Quantity Comments Source Sex Assigned At 2000 00:00:00 2000 00:00:00 Female [facility] Medications Ordered Medication Name Filled Medication Name Start Date Stop Da te Current Medication? Ordering Clinician Indication Dosage Frequency Signature (SIG) Comments Components Source Tramadol Hcl (Ultram) 50 Mg TABLET Tramadol Hcl (Ultram) 50 Mg TABLET Yes 50 Every 4 Hours as needed for Abdominal Pain [facility] Vital Signs Vital Name Observation Time Observation Value Comments Source Body Temperature 2019-12-03 11:54:00 98.8 [degF] [facility] Weight 2019-12-03 07:48:00 135 [lb_av] [facility] BMI (Body Mass Index) 2019-12-03 07:48:00 23.9 kg/m2 [facility] Procedures Procedure Date / Time Performed Performing Clinician Deborah tai Computed tomography of abdomen and pelvis with contrast 00:00:00 [facility] Encounters Start Date/Time End Date/Time Encounter Type Admission Type Attendi [facility] Care Department Encounter ID Source 2019-12-03 08:00:00 2019-12-03 12:21:00 Departed Emergency Room 1 JEN DAVIS [facility] [id number] I [facility] 2017-08-09 19:39:00 2017-08-09 22:23:00 Departed Emergency Room ER MARIAJOSE FAITH [facility] [id number] [facility] Results Test Description Test Time Test Comments Results Result Comments Source CT ABDOMEN/PELVIS W 2019-12-03 10:14:00 [place] [address] Patient Name: ROSARIO PHAM MR #: [id number] : 2000 Age/Sex: 19/F Req #: [id number] Adm Physician: Ordered by: JEN DAVIS DO Report #: [id number] Location: ER Room/Bed: Procedure: [id number] CT/CT ABDOMEN/PELVIS W Exam Date: 12/03/19 Exam [...] on 12/03/2019 10:26 AM Dictated By: TIEN RAMON MD 1026 Transcribed By: DIVINE on 12/03/19 1026 COPY TO: JEN DAVIS, Blood leukocytes automated count (number/volume) 2019-12-03 07:57:00 Test Item White Blood Count (test code = 6690-2) 17.26 4.8-10.8 [facility]Blood erythrocytes automated count (number/volume)2019-12-03 07:57:00* Test Item Value Reference Range Interpretation Comments Red Blood Count (test code = 789-8) 4.11 3.6-5.1 [facility] HospitalBlood hemoglobin measurement (moles/volume)2019-12-03 07:57:00* Test Item Value Reference Range Interpretation Comments Hemoglobin (test code = 49145-9) 12.8 12.0-16.0 [facility] HospitalAutomated blood hematocrit (volume fraction)2019-12-03 07:57:00* Test Item Value Reference Range Interpretation Comments Hematocrit (test code = 4544-3) 36.9 34.2-44.1 [facility] HospitalAutomated erythrocyte mean corpuscular tlzzir1466-93-28 07:57:00* Test Item Value Reference Range Interpretation Comments Mean Corpuscular Volume (test code = 787-2) 89.8 81-99 [facility] HospitalAutomated erythrocyte mean corpuscular hemoglobin (mass per erythrocyte)2019-12-03 07:57:00* Test Item Value Reference Range Interpretation Comments Mean Corpuscular Hemoglobin (test code = 785-6) 31.1 28-32 [facility] HospitalAutiredell memorial hospitaled erythrocyte mean corpuscular hemoglobin concentration measurement (mass/volume)2019-12-03 07:57:00* Test Item Value Reference Range Interpretation Comments Mean Corpuscular Hemoglobin Concent (test code = 786-4) 34.7 31-35 [facility] HospitalRDW ObsTz-Vww4231-08-31 07:57:00* Test Item Value Reference Range Interpretation Comments Red Cell Distribution Width (test code = 45008-6) 12.2 11.7 -14.4 [facility] HospitalAutiredell memorial hospitaled blood platelet count (count/volume)2019-12-03 07:57:00* Test Item Value Reference Range Interpretation Comments Platelet Count (test code = 777-3) 233 140-360 [facility] HospitalAutomated blood segmented neutrophil count as percentage of total enzjoyddzm1245-30-26 07:57:00* Test Item Value Reference Range Interpretation Comments Neutrophils (%) (Auto) (test code = 28961-7) 85.6 38.7-80.0 [facility] HospitalAutomated blood lymphocyte count as percentage ot total dxgemlrpzs6872-59-72 07:57:00* Test Item Value Reference Range Interpretation Comments Lymphocytes (%) (Auto) (test code = 736-9) 6.2 18.0-39.1 [facility] HospitalAutomated blood monocyte count as percentage of total rjystiqpnq6509-06-77 07:57:00* Test Item Value Reference Range Interpretation Comments Monocytes (%) (Auto) (test code = 5905-5) 7.0 4.4-11.3 [facility] HospitalAutomated blood eosinophil count as percentage of total cgalvzqzxb2368-01-19 07:57:00* Test Item Value Reference Range Interpretation Comments Eosinophils (%) (Auto) (test code = 713-8) 0.1 0.0-6.0 [facility] HospitalAutomated blood basophil count as percentage of total sidvifmhcr0382-41-98 07:57:00* Test Item Value Reference Range Interpretation Comments Basophils (%) (Auto) (test code = 706-2) 0.3 0.0-1.0 [facility] HospitalFluoroscopic procedure less than one hour zlsumbfh2682-65-13 07:57:00* Test Item Value Reference Range Interpretation Comments IM GRANULOCYTES % (test code = IM GRANULOCYTES %) 0.8 0.0- 1.0 [facility] HospitalAutomated blood neutrophil count 2019-12-03 07:57:00* Test Item Value Reference Range Interpretation Comments Neutrophils # (Auto) (test code = 751-8) 14.8 2.1-6.9 [facility] HospitalBlood lymphocytes count (number/volume) 2019-12-03 07:57:00* Test Item Value Reference Range Interpretation Comments Lymphocytes # (Auto) (test code = 82996-5) 1.1 1.0-3.2 [facility] HospitalBlood monocytes automated count (number/volume)2019-12-03 07:57:00* Test Item Value Reference Range Interpretation Comments Monocytes # (Auto) (test code = 742-7) 1.2 0.2-0.8 [facility] HospitalAutomated blood eosinophil count 2019-12-03 07:57:00* Test Item Value Reference Range Interpretation Comments Eosinophils # (Auto) (test code = 711-2) 0.0 0.0-0.4 [facility] HospitalAutomated blood basophil count (count/volume)2019-12-03 07:57:00* Test Item Value Reference Range Interpretation Comments Basophils # (Auto) (test code = 704-7) 0.1 0.0-0.1 [facility] HospitalFluoroscopic procedure less than one hour frgglamb9006-15-71 07:57:00* Test Item Value Reference Range Interpretation Comments Absolute Immature Granulocyte (auto (blanca t code = Absolute Immature Granulocyte (auto) 0.13 0-0.1 [facility] HospitalUrine color ibukulahwxqpw6462-50-79 07:57:00* Test Item Value Reference Range Interpretation Comments Urine Color (test code = 5778-6) YELLOW YELLOW [facility] HospitalUrine xczplrt0204-68-70 07:57:00* Test Item Value Reference Range Interpretation Comments Urine Clarity (test code = 65527-3) SL CLOUDY CLEAR [facility] Centerpecific gravity of Urine by Test strip 2019-12-03 07:57:00* Test Item Value Reference Range Interpretation Comments Urine Specific [place] (test code = 5811-5) >=1.030 1.010-1.02 5 [facility] HospitalUrine pH measurement by automated test imans3570-31-51 07:57:00* Test Item Value Reference Range Interpretation Comments Urine pH (test code = 45660-6) 5 5-7 [facility] HospitalUrine leukocyte esterase detection by lubwkzms0434-01-54 07:57:00* Test Item Value Reference Range Interpretation Comments Urine Leukocyte Esterase (test code = 5799-2) NEGATIVE NEGATIVE [facility] HospitalUrine nitrite ekuihlqvr3631-42-59 07:57:00* Test Item Value Reference Range Interpretation Comments Urine Nitrite (test code = 12269-3) NEGATIVE NEGATIVE [facility] HospitalUrine protein measurement by test strip (mass/volume)2019-12-03 07:57:00* Test Item Value Reference Range Interpretation Comments Urine Protein (test code = 5804-0) 2+ NEGATIVE [facility] HospitalUrine glucose evmzurcfd1460-58-98 07:57:00* Test Item Value Reference Range Interpretation Comments Urine Glucose (UA) (test code = 2349-9) NEGATIVE NEGATIVE [facility] HospitalUrine ketones detection by automated test kdgqx2226-95-81 07:57:00* Test Item Value Reference Range Interpretation Comments Urine Ketones (test code = 21905-7) 2+ NEGATIVE [facility] HospitalUrine urobilinogen measurement by test strip (mass/volume)2019-12-03 07:57:00* Test Item Value Reference Range Interpretation Comments Urine Urobilinogen (test code = 99019-3) 1 0.2-1 [facility] HospitalUrine total bilirubin measurement (mass/volume)2019-12-03 07:57:00* Test Item Value Reference Range Interpretation Comments Urine Bilirubin (test code = 1978-6) MODERATE NEGATIVE [facility] HospitalUrine erythrocytes nwuvvilny7508-32-06 07:57:00* Test Item Value Reference Range Interpretation Comments Urine Blood (test code = 49416-3) 1+ NEGATIVE [facility] HospitalAutomated urine sediment leukocyte count by microscopy (number/high power field)2019-12-03 07:57:00* Test Item Value Reference Range Interpretation Comments Urine WBC (test code = 5821-4) 11-20 0-5 [facility] HospitalErythrocytes detection in urine sediment by light yjnatpilre4429-26-40 07:57:00* Test Item Value Reference Range Interpretation Comments Urine RBC (test code = 94872-9) 0-5 0-5 [facility] HospitalBacteria detection in urine sediment by light rjmtbbpsiv7869-23-64 07:57:00* Test Item Value Reference Range Interpretation Comments Urine Bacteria (test code = 43266-3) MANY NONE [facility] HospitalEpithelial cells detection in urine sediment by light srcxeawxtk4281-36-53 07:57:00* Test Item Value Reference Range Interpretation Comments Urine Epithelial Cells (test code = 98817-3) MODERATE NONE [facility]ererum or plasma sodium measurement (moles/volume)2019-12-03 07:57:00* Test Item Value Reference Range Interpretation Comments Sodium Level (test code = 2951-2) 136 136-145 [facility] Centererum or plasma potassium measurement (moles/volume)2019-12-03 07:57:00* Test Item Value Reference Range Interpretation Comments Potassium Level (test code = 2823-3) 3.5 3.5-5.1 [facility] Centererum or plasma chloride measurement (moles/volume)2019-12-03 07:57:00* Test Item Value Reference Range Interpretation Comments Chloride Level (test code = 2075-0) 104 98-107 [facility]ererum or plasma carbon dioxide, total measurement (moles/volume)2019-12-03 07:57:00* Test Item Value Reference Range Interpretation Comments Carbon Dioxide Level (test code = 2028-9) 17 22-29 [facility]ererum or plasma anion ffb7108-40-11 07:57:00* Test Item Value Reference Range Interpretation Comments Anion Gap (test code = 69833-7) 18.5 8-16 [facility]ererum or plasma urea nitrogen measurement (mass/volume)2019-12-03 07:57:00* Test Item Value Reference Range Interpretation Comments Blood Urea Nitrogen (test code = 3094-0) 9 7-26 [facility]ererum or plasma creatinine measurement (mass/volume)2019-12-03 07:57:00* Test Item Value Reference Range Interpretation Comments Creatinine (test code = 2160-0) 0.92 0.57-1.11 [facility]ererum or plasma urea nitrogen/creatinine mass pemzt0600-62-34 07:57:00* Test Item Value Reference Range Interpretation Comments BUN/Creatinine Ratio (test code = 3097-3) 10 6-25 [facility] HospitalEstimated glomerular filtration rate (GFR) mclscpihltbox5650-08-60 07:57:00* Test Item Value Reference Range Interpretation Comments Estimat Glomerular Filtration Rate (test code = 018868529) > 60 >60 Ranges were taken from the National Kidney Disease Education Program and the [facility] Kidney Foundation literature.Reference ranges:60 or greater: Fwbopd64-70 ( for 3 consecutive months): Chronic kidney disease 15 or less: Kidney failureHouston Methodist Baytown HospitalGlucose wwoytpiizqh2924-84-04 07:57:00* Test Item Value Reference Range Interpretation Comments Glucose Level (test code = ZRN5442) 135 74-118 [facility]ererum or plasma calcium measurement (mass/volume)2019-12-03 07:57:00* Test Item Value Reference Range Interpretation Comments Calcium Level (test code = 02430-7) 9.0 8.4-10.2 [facility]ererum or plasma total bilirubin measurement (mass/volume)2019-12-03 07:57:00* Test Item Value Reference Range Interpretation Comments Total Bilirubin (test code = 1975-2) 0.7 0.2-1.2 [facility] HospitalFluoroscopic procedure less than one hour vyjypnbd9314-56-23 07:57:00* Test Item Value Reference Range Interpretation Comments Aspartate Amino Transf (AST/SGOT) (test code = Aspartate Amino Transf (AST/SGOT)) 19 5-34 [facility]ererum or plasma alanine aminotransferase measurement (enzymatic activity/volume)2019-12-03 07:57:00* Test Item Value Reference Range Interpretation Comments Alanine Aminotransferase (ALT/SGPT) (test code = 1742-6) 28 0-55 [facility]ererum or plasma protein measurement (mass/volume)2019-12-03 07:57:00* Test Item Value Reference Range Interpretation Comments Total Protein (test code = 2885-2) 7.9 6.5-8.1 [facility]ererum or plasma albumin measurement (mass/volume)2019-12-03 07:57:00* Test Item Value Reference Range Interpretation Comments Albumin (test code = 1751-7) 3.7 3.5-5.0 [facility] HospitalPlasma globulin measurement (mass/volume) 2019-12-03 07:57:00* Test Item Value Reference Range Interpretation Comments Globulin (test code = 58779-4) 4.2 2.3-3.5 [facility]ererum or plasma albumin/globulin mass usbxb4462-00-10 07:57:00* Test Item Value Reference Range Interpretation Comments Albumin/Globulin Ratio (test code = 1759-0) 0.9 0.8-2.0 [facility]ererum or plasma alkaline phosphatase measurement (enzymatic activity/volume)2019-12-03 07:57:00* Test Item Value Reference Range Interpretation Comments Alkaline Phosphatase (test code = 6768-6) 82 40-150 [facility]ererum or plasma lipase measurement (enzymatic activity/volume)2019-12-03 07:57:00* Test Item Value Reference Range Interpretation Comments Lipase (test code = 3040-3) 10 8-78 [facility]ererum or plasma choriogonadotropin ( test) vpsigggsj9759-99-99 07:57:00* Test Item Value Reference Range Interpretation Comments Human Chorionic Gonadotropin, Qual (test code = 2118-8) NEGATIVE NEGATIVE [facility] HospitalUrine Qlhhk5707-17-52 21:14:00* Test Item Value Reference Range Interpretation Comments Urine Color (test code = 5778-6) YELLOW YELLOW [facility] HospitalUrine Ncdazbw0382-44-56 21:14:00* Test Item Value Reference Range Interpretation Comments Urine Clarity (test code = 51249-3) CLEAR CLEAR [facility] HospitalUrine Specific Fjmbatp8206-75-23 21:14:00 * Test Item Value Reference Range Interpretation Comments Urine Specific [place] (test code = 5811-5) 1.020 1.010-1.02 5 [facility] HospitalUrine vS3782-42-11 21:14:00* Test Item Value Reference Range Interpretation Comments Urine pH (test code = 68862-6) 7 5-7 [facility] HospitalUrine Leukocyte Mcnfghlz0539-27-67 21:14:00* Test Item Value Reference Range Interpretation Comments Urine Leukocyte Esterase (test code = 5799-2) NEGATIVE NEGATIVE [facility] HospitalUrine Jgfwejo2602-89-11 21:14:00* Test Item Value Reference Range Interpretation Comments Urine Nitrite (test code = 89341-6) NEGATIVE NEGATIVE [facility] HospitalUrine Nvcgyze0519-80-78 21:14:00* Test Item Value Reference Range Interpretation Comments Urine Protein (test code = 5804-0) NEGATIVE NEGATIVE [facility] HospitalUrine Glucose (UA)2017-08-09 21:14:00* Test Item Value Reference Range Interpretation Comments Urine Glucose (UA) (test code = 2349-9) NEGATIVE NEGATIVE [facility] HospitalUrine Glaotxl2548-33-89 21:14:00* Test Item Value Reference Range Interpretation Comments Urine Ketones (test code = 80768-9) NEGATIVE NEGATIVE [facility] HospitalUrine Stjnnnlwlmno5424-75-77 21:14:00* Test Item Value Reference Range Interpretation Comments Urine Urobilinogen (test code = 33060-6) 0.2 0.2-1 [facility] HospitalUrine Qyogkstbf2471-54-05 21:14:00* Test Item Value Reference Range Interpretation Comments Urine Bilirubin (test code = 1978-6) NEGATIVE NEGATIVE [facility] HospitalUrine Noktw4729-20-55 21:14:00* Test Item Value Reference Range Interpretation Comments Urine Blood (test code = 03033-9) NEGATIVE NEGATIVE [facility] HospitalUrine HBK8732-80-95 21:14:00* Test Item Value Reference Range Interpretation Comments Urine WBC (test code = 5821-4) 0-5 0-5 [facility] HospitalUrine MLQ9570-22-89 21:14:00* Test Item Value Reference Range Interpretation Comments Urine RBC (test code = 15801-1) 0-5 0-5 [facility] HospitalUrine Ueibwwlt8848-30-13 21:14:00* Test Item Value Reference Range Interpretation Comments Urine Bacteria (test code = 87510-9) FEW NONE [facility] HospitalUrine Epithelial Pnauy3506-39-01 21:14:00 * Test Item Value Reference Range Interpretation Comments Urine Epithelial Cells (test code = 30111-5) FEW NONE [facility] HospitalUrine Ikvs7504-03-37 20:53:00* Test Item Value Reference Range Interpretation Comments Urine Test (test code = 2106-3) NEGATIVE NEGATIVE [facility] HospitalWhite Blood Sxqdh8599-02-33 20:40:00* Test Item Value Reference Range Interpretation Comments White Blood Count (test code = 6690-2) 8.59 4.8-10.8 [facility] HospitalRed Blood Gkuqe8708-73-85 20:40:00* Test Item Value Reference Range Interpretation Comments Red Blood Count (test code = 789-8) 4.23 3.6-5.1 [facility] HospitalHemoglobin2018-04-07 20:40:00* Test Item Value Reference Range Interpretation Comments Hemoglobin (test code = 74601-9) 13.3 12.0-16.0 [facility] HospitalHematocrit2018-04-07 20:40:00* Test Item Value Reference Range Interpretation Comments Hematocrit (test code = 4544-3) 38.3 34.2-44.1 [facility] HospitalMean Corpuscular Rtttyz7028-01-73 20:40:00* Test Item Value Reference Range Interpretation Comments Mean Corpuscular Volume (test code = 787-2) 90.5 81-99 [facility] HospitalMean Corpuscular Yhdruiewzl5573-22-67 20:40:00* Test Item Value Reference Range Interpretation Comments Mean Corpuscular Hemoglobin (test code = 785-6) 31.4 28-32 [facility] HospitalMean Corpuscular Hemoglobin Concent 2017-08-09 20:40:00* Test Item Value Reference Range Interpretation Comments Mean Corpuscular Hemoglobin Concent (test code = 786-4) 34.7 31-35 [facility] HospitalRed Cell Distribution Ncvfn0114-87-11 20:40:00* Test Item Value Reference Range Interpretation Comments Red Cell Distribution Width (test code = 18572-4) 12.3 11.7 -14.4 [facility] HospitalPlatelet Uqtgp5666-99-91 20:40:00* Test Item Value Reference Range Interpretation Comments Platelet Count (test code = 777-3) 296 140-360 [facility] HospitalNeutrophils (%) (Auto)2017-08-09 20:40:00 * Test Item Value Reference Range Interpretation Comments Neutrophils (%) (Auto) (test code = 77058-0) 56.8 38.7-80.0 [facility] HospitalLymphocytes (%) (Auto)2017-08-09 20:40:00 * Test Item Value Reference Range Interpretation Comments Lymphocytes (%) (Auto) (test code = 736-9) 35.5 18.0-39.1 [facility] HospitalMonocytes (%) (Auto)2017-08-09 20:40:00* Test Item Value Reference Range Interpretation Comments Monocytes (%) (Auto) (test code = 5905-5) 6.6 4.4-11.3 [facility] HospitalEosinophils (%) (Auto)2017-08-09 20:40:00 * Test Item Value Reference Range Interpretation Comments Eosinophils (%) (Auto) (test code = 713-8) 0.6 0.0-6.0 [facility] HospitalBasophils (%) (Auto)2017-08-09 20:40:00* Test Item Value Reference Range Interpretation Comments Basophils (%) (Auto) (test code = 706-2) 0.3 0.0-1.0 [facility] HospitalIM GRANULOCYTES %2017-08-09 20:40:00* Test Item Value Reference Range Interpretation Comments IM GRANULOCYTES % (test code = IM GRANULOCYTES %) 0.2 0.0- 1.0 [facility] HospitalNeutrophils # (Auto)2017-08-09 20:40:00* Test Item Value Reference Range Interpretation Comments Neutrophils # (Auto) (test code = 751-8) 4.9 2.1-6.9 [facility] HospitalLymphocytes # (Auto)2017-08-09 20:40:00* Test Item Value Reference Range Interpretation Comments Lymphocytes # (Auto) (test code = 08478-3) 3.1 1.0-3.2 [facility] HospitalMonocytes # (Auto)2017-08-09 20:40:00* Test Item Value Reference Range Interpretation Comments Monocytes # (Auto) (test code = 742-7) 0.6 0.2-0.8 [facility] HospitalEosinophils # (Auto)2017-08-09 20:40:00* Test Item Value Reference Range Interpretation Comments Eosinophils # (Auto) (test code = 711-2) 0.1 0.0-0.4 [facility] HospitalBasophils # (Auto)2017-08-09 20:40:00* Test Item Value Reference Range Interpretation Comments Basophils # (Auto) (test code = 704-7) 0.0 0.0-0.1 [facility] HospitalAbsolute Immature Granulocyte (auto 2017-08-09 20:40:00* Test Item Value Reference Range Interpretation Comments Absolute Immature Granulocyte (auto (blanca t code = Absolute Immature Granulocyte (auto) 0.02 0-0.1 [facility] Centerodium Ggxby2684-34-24 20:39:00* Test Item Value Reference Range Interpretation Comments Sodium Level (test code = 2951-2) 137 136-145 [facility] HospitalPotassium Bhixd4558-22-29 20:39:00* Test Item Value Reference Range Interpretation Comments Potassium Level (test code = 2823-3) 3.8 3.5-5.1 [facility] HospitalChloride Gavhe1183-13-86 20:39:00* Test Item Value Reference Range Interpretation Comments Chloride Level (test code = 2075-0) 104 98-107 [facility] HospitalCarbon Dioxide Wblye8409-17-61 20:39:00* Test Item Value Reference Range Interpretation Comments Carbon Dioxide Level (test code = 2028-9) 25 22-29 [facility] HospitalAnion Ipe1677-69-54 20:39:00* Test Item Value Reference Range Interpretation Comments Anion Gap (test code = 84710-8) 11.8 8-16 [facility] HospitalBlood Urea Ttsliudm9248-89-94 20:39:00* Test Item Value Reference Range Interpretation Comments Blood Urea Nitrogen (test code = 3094-0) 11 7-26 [facility] HospitalCreatinine2018-04-07 20:39:00* Test Item Value Reference Range Interpretation Comments Creatinine (test code = 2160-0) 0.72 0.57-1.11 [facility] HospitalBUN/Creatinine Lvrxa6987-07-67 20:39:00* Test Item Value Reference Range Interpretation Comments BUN/Creatinine Ratio (test code = 3097-3) 15 6-25 [facility] HospitalEstimat Glomerular Filtration Rate 2017-08-09 20:39:00* Test Item Value Reference Range Interpretation Comments Estimat Glomerular Filtration Rate (test code = 03894-7) 60- >60 Ranges were taken from the National Kidney Disease Education Program and the [facility] literature.Reference ranges:60 or greater: Bhzljq81-47 ( for 3 consecutive months): Chronic kidney disease 15 or less: Kidney failureHouston [facility] HospitalGlucose Pupoh4532-81-81 20:39:00* Test Item Value Reference Range Interpretation Comments Glucose Level (test code = GNM8822) 87 74-118 [facility]Calcium Xcprd2535-19-40 20:39:00* Test Item Value Reference Range Interpretation Comments Calcium Level (test code = 48769-2) 9.4 8.4-10.2 [facility] HospitalTotal Jgrrssano6370-54-19 20:39:00* Test Item Value Reference Range Interpretation Comments Total Bilirubin (test code = 1975-2) 0.2 0.2-1.2 [facility] HospitalAspartate Amino Transf (AST/SGOT) 2017-08-09 20:39:00* Test Item Value Reference Range Interpretation Comments Aspartate Amino Transf (AST/SGOT) (test code = Aspartate Amino Transf (AST/SGOT)) 25 5-34 [facility] HospitalAlanine Aminotransferase (ALT/SGPT) 2017-08-09 20:39:00* Test Item Value Reference Range Interpretation Comments Alanine Aminotransferase (ALT/SGPT) (test code = 1742-6) 25 0-55 [facility]Total Hbimlth6469-58-20 20:39:00* Test Item Value Reference Range Interpretation Comments Total Protein (test code = 2885-2) 7.6 6.5-8.1 [facility] HospitalAlbumin2018-04-07 20:39:00* Test Item Value Reference Range Interpretation Comments Albumin (test code = 1751-7) 4.1 3.5-5.0 [facility] HospitalGlobulin2018-04-07 20:39:00* Test Item Value Reference Range Interpretation Comments Globulin (test code = 31975-2) 3.5 2.3-3.5 [facility] HospitalAlbumin/Globulin [id number] 20:39:00 * Test Item Value Reference Range Interpretation Comments Albumin/Globulin Ratio (test code = 1759-0) 1.2 0.8-2.0 [facility] HospitalAlkaline Ixqwosjlqos5301-14-25 20:39:00* Test Item Value Reference Range Interpretation Comments Alkaline Phosphatase (test code = 6768-6) 70 40-150 [facility] HospitalCT [facility] [address] [address] Patient Name: ROSARIO PHAM MR #: [id number] : 2000 Age/Sex: 16/F Req #: [id number] Adm Physician: Ordered by: MARIAJOSE FAITH MD Report #: [id number] Location: ER Room/Bed: Procedure: [id number] CT/CT ABDOMEN/PELVIS W E xam Date: 08/09/17 [...]
[2019-12-03] MEDS: METRONIDAZOLE 500MG/NS 100ML 100 ML IV SCH (21:45)
[2019-12-04] VITALS (9 sets, daily range): BP systolic 90–110; BP diastolic 46–83
[2019-12-04] MEDS: CIPROFLOXACIN 400 MG/D5W 200ML 200 ML IV SCH ×3 (00:34→23:54)
[2019-12-04] MEDS: ACETAMINOPHEN 325 MG TAB PO PRN ×2 (03:35→20:10)
[2019-12-04] MEDS ORDERED: SODIUM CHLORIDE 0.9% 1000ML 1,000 ML ONE (05:07)
[2019-12-04] MEDS: METRONIDAZOLE 500MG/NS 100ML 100 ML IV SCH ×3 (05:33→23:09)
[2019-12-04] MEDS: SODIUM CHLORIDE 0.9% 1000ML 1,000 ML IV SCH ×3 (05:33→23:09)
[2019-12-04 05:39] LABS: BASOPHILS % 0.1 % (0.0-1.0); EOSINOPHILS # (AUTO) 0.1 (0.0-0.4); EOSINOPHILS % 0.7 % (0.0-6.0); HEMATOCRIT 31.2 % (34.2-44.1); HEMOGLOBIN 10.6 g/dL (12.0-16.0); LYMPHOCYTES # (AUTO) 0.4 (1.0-3.2); LYMPHOCYTES % 4.8 % (18.0-39.1); MEAN CORPUSCULAR HEMOGLOBIN 30.5 pg (28-32); MEAN CORPUSCULAR VOLUME 89.9 fL (81-99); MONOCYTES # (AUTO) 0.4 (0.2-0.8); MONOCYTES % 4.9 % (4.4-11.3); NEUTROPHILS # (AUTO) 7.3 (2.1-6.9); PLATELET COUNT 168 x10e3/uL (140-360); RED BLOOD COUNT 3.47 x10e6/uL (3.6-5.1); RED CELL DISTRIBUTION WIDTH 12.5 % (11.7-14.4)
[2019-12-04 06:13] LABS: FERRITIN 189.31 ng/mL (4.63-204.00)
[2019-12-04 06:30] LABS: ALANINE AMINOTRANSFERASE 17 IU/L (0-55); ALBUMIN 2.6 g/dL (3.5-5.0); ALBUMIN/GLOBULIN RATIO 0.8 (0.8-2.0); ALKALINE PHOSPHATASE 64 IU/L (40-150); ANION GAP 9.3 mmol/L (8-16); BLOOD UREA NITROGEN 5 mg/dL (7-26); BUN/CREATININE RATIO 7 (6-25); CALCIUM 7.7 mg/dL (8.4-10.2); CARBON DIOXIDE 18 mmol/L (22-29); CHLORIDE 108 mmol/L (98-107); CREATININE, SERUM 0.68 mg/dL (0.57-1.11); EST GLOMERULAR FILTRATION RATE > 60 ML/MIN (60-); GLUCOSE 115 mg/dL (74-118); POTASSIUM 3.3 mmol/L (3.5-5.1); SODIUM 132 mmol/L (136-145)
--- NOTE | 2019-12-04 07:00 | NUR ---
BEDSIDE SHIFT REPORT RECEIVED PT IN STABLE CONDITION, DENIES PAIN AT THIS TIME, UPDATED ON POC VOICED UNDERSTANDING, CALL LIGHT IN REACH WILL CONTINUE TO MONITOR
--- NOTE | 2019-12-04 08:12 | NUR ---
Subjective: The patient is evaluated. Patient seen and evaluated. Patient has had episodes of fever and proceeded to order blood cultures. I spoke with nursing staff and patient turned to have COVID-19 positive test. I proceeded to request infectious disease consultation. At the time of my visit the patient was doing fine she was having this abdominal pain. No nausea, no vomiting, no diarrhea. No chest pain or shortness of breath. Objective: Constitutional: Well-developed no distress. Vital signs: Blood pressure 94/83, respirations 16, pulse 117, temperature 101.0 . HEENT: Head: Normocephalic and atraumatic. PERRLA. Cardiovascular: Regular rhythm, no murmurs, no rubs, no gallops. Pulmonary/Chest: Clear bilaterally, no rales, no rhonchi. Abdominal: Soft, nontender, bowel sounds positive and normal. No distention, no guarding, no rebound. Musculoskeletal: Normal range of motion. Extremities: No edema, no clubbing. Neurological: He is alert and oriented to person, place, and time. Skin: Skin is warm and dry. Psychiatric: He has a normal mood and affect. Lab data: Sodium 132, potassium 3.3, chloride 108, CO2 18, BUN 5, creatinine 0.68, liver function tests were normal CBC: WBC 8.17, hemoglobin 10.6, platelet count 168,000 Assessment: 1. Abdominal pain in the lower quadrants with CAT scan of the findings suggestive of infectious/inflammatory etiology, unclear. Inflammatory bowel dis ease is a consideration. 2. COVID-19 viral infection 3. Leukocytosis improved 4. Fever Plan of care: 1. IV fluids. 2. IV antibiotics consisting of Cipro and Flagyl intravenously. 3. GI consultation requested with Dr. Garcia 4. DVT prophylaxis 5. Pain control 6. ID consultation requested. 7. Follow-up labs 8. Blood cultures 9. DVT prophylaxis
[2019-12-04 09:34] LABS: ERYTHROCYTE SEDIMENTATION RATE 72 mm/hr (0-20)
[2019-12-04] MEDS: ONDANSETRON HCL INJ 2MG/ML 2ML 2 MG/ML VIAL IV PRN (13:37)
--- NOTE | 2019-12-04 16:30 | NUR ---
PAGED DR. ALLAN RE: ELEVATED HR. AWAITING CALL BACK
--- NOTE | 2019-12-04 19:18 | NUR ---
PAGED DR. GASCA AWAITING RE: ELEVATED HR AWAITING CALL BACK
--- NOTE | 2019-12-04 19:55 | NUR ---
Nutrition Screen Note RD Recommendation for Physician: - Advance diet as tolerated to GI soft diet Plan of Care: RD following, monitoring for tolerance and adequacy, diet education Nutrition reason for involvement: MST Primary Diagnose(s): IBD PMH: None Ht: 64in Wt: 168# BMI: 28.8kg/m2 IBW: 120# RD Assessment: Chart reviewed. Labs and meds reviewed. 19yo F, with no PMHx, who was admitted for IBD. Visited pt in the room. Pt reported nausea and vomited today. Pt reported having a lot of gas. No recent weight loss noted. Pt was eager to eat again. Provided handouts on IBD low fiber diet. Pt verbalized understanding and all questions have been answered. Will continue to follow. Current Diet: clear liquid diet Malnutrition Evaluation (12/03) The patient does not meet criteria for a specified degree of malnutrition at this time. Will re-evaluate at follow-up as appropriate. Diet Education Needs Assessment: Diet education indicated. Nutrition Care Level: low Signed: Sammie Perez, MS, RD, LD
--- NOTE | 2019-12-04 20:47 | NUR ---
LAB CALLED, STATED PATIENT'S COVID TEST CAME BACK POSITIVE. CALLED BACK TO CONFIRM. INFORMED MD GASCA, CONSULT MD MELGAR. INFORMED FRONT END SPECIALIST, AWAITING ROOM ASSIGNMENT.
--- NOTE | 2019-12-04 21:12 | NUR ---
LUIS MELGAR FOR CONSULT.
--- NOTE | 2019-12-04 21:20 | NUR ---
PATIENT TRANSFERRED IN STABLE CONDITION VIA WHEELCHAIR.
--- NOTE | 2019-12-04 21:22 | NUR ---
RECEIVED THE PATIENT TO THE UNIT IN A WHEEL CHAIR IN A STABLE CONDITION.
--- NOTE | 2019-12-04 22:42 | NUR ---
BLOOD JAMES AND SENT TO THE LAB FOR CULTURE.
[2019-12-05] VITALS (8 sets, daily range): BP systolic 82–112; BP diastolic 39–65
--- NOTE | 2019-12-05 01:29 | NUR ---
DR.M RODRÍGUEZ HAS SEEN THE PATIENT .RECEIVED NEW ORDERS.
[2019-12-05] MEDS: ONDANSETRON HCL INJ 2MG/ML 2ML 2 MG/ML VIAL IV PRN ×4 (02:07→18:42)
[2019-12-05] MEDS: PANTOPRAZOLE 40 MG 10ML VIAL IV SCH ×2 (02:45→13:30)
[2019-12-05] MEDS: ACETAMINOPHEN 325 MG TAB PO PRN ×3 (04:51→16:19)
[2019-12-05 05:56] LABS: BASOPHILS % 0.2 % (0.0-1.0); EOSINOPHILS # (AUTO) 0.1 (0.0-0.4); EOSINOPHILS % 1.1 % (0.0-6.0); HEMATOCRIT 30.7 % (34.2-44.1); HEMOGLOBIN 10.5 g/dL (12.0-16.0); LYMPHOCYTES # (AUTO) 0.5 (1.0-3.2); LYMPHOCYTES % 7.5 % (18.0-39.1); MEAN CORPUSCULAR HEMOGLOBIN 30.7 pg (28-32); MEAN CORPUSCULAR HGB CONC 34.2 g/dL (31-35); MEAN CORPUSCULAR VOLUME 89.8 fL (81-99); MONOCYTES # (AUTO) 0.4 (0.2-0.8); MONOCYTES % 5.9 % (4.4-11.3); NEUTROPHILS # (AUTO) 5.3 (2.1-6.9); NEUTROPHILS % 84.8 % (38.7-80.0); PLATELET COUNT 174 x10e3/uL (140-360); RED BLOOD COUNT 3.42 x10e6/uL (3.6-5.1); RED CELL DISTRIBUTION WIDTH 12.8 % (11.7-14.4); RETICULOCYTE % 1.6 % (0.8-2.2)
[2019-12-05] MEDS: METRONIDAZOLE 500MG/NS 100ML 100 ML IV SCH ×3 (05:56→21:56)
--- NOTE | 2019-12-05 05:58 | NUR ---
Blood gabriella and sent to the lab.pt tolerated well.urine and stool to be collected.explained and specimen container given to the patient.
[2019-12-05 06:26] LABS: % IRON SATURATION 7 % (15-50); ALANINE AMINOTRANSFERASE 16 IU/L (0-55); ALBUMIN 2.5 g/dL (3.5-5.0); ALBUMIN/GLOBULIN RATIO 0.7 (0.8-2.0); ALKALINE PHOSPHATASE 62 IU/L (40-150); ANION GAP 13.1 mmol/L (8-16); BLOOD UREA NITROGEN < 5 mg/dL (7-26); BUN/CREATININE RATIO 7 (6-25); CALCIUM 7.6 mg/dL (8.4-10.2); CARBON DIOXIDE 20 mmol/L (22-29); CHLORIDE 107 mmol/L (98-107); CREATININE, SERUM 0.72 mg/dL (0.57-1.11); EST GLOMERULAR FILTRATION RATE > 60 ML/MIN (60-); GLUCOSE 90 mg/dL (74-118); IRON 14 ug/dL (50-170); POTASSIUM 3.1 mmol/L (3.5-5.1); SODIUM 137 mmol/L (136-145); TOTAL IRON BINDING CAPACITY 207 ug/dL (261-478); TRANSFERRIN 148 mg/dL (180-382)
--- NOTE | 2019-12-05 06:30 | NUR ---
Spoke to Ms Zurita in answering service regarding consultation and pt has fever.
[2019-12-05 06:46] LABS: FERRITIN 242.63 ng/mL (4.63-204.00)
--- NOTE | 2019-12-05 07:05 | NUR ---
REPORT GIVEN TO ONCOMING RN.STABLE CONDITION.
[2019-12-05] MEDS: SODIUM CHLORIDE 0.9% 1000ML 1,000 ML IV SCH ×2 (09:00→16:45)
--- NOTE | 2019-12-05 10:02 | NUR ---
Date of service: 12/05/2019 Subjective: Events noted. Patient was seen last evening and she was feeling better as far as what abdominal pain is concerned however she was noted to have COVID-19 infection. She has no complaint of shortness of breath or chest pain. GI consultation was requested with Dr. Benitez. Her diet has been advanced. ID consultation requested. However at the time of my visit late in the evening she was noted to have hypotension systolic was in the mid 80s. D-dimer significantly elevated 9.1 and ID is following the patient and recommendations noted as far as what antibio tic is concerned. Cefepime was added to the regimen of treatment along with Flagyl. Proceeded to order blood gases which did reveal a pH of 7.4 PCO2 in the mid 20s and a PO2 around 70. Anticoagulation is being order and critical care consultation with Dr. Mehta. Objective: Patient has been alert oriented to person time place. Patient in no distress. Vital signs: Blood pressure 109/62, respiration 18, pulse 109, temperature 99.6. HEENT: No gross abnormalities Neck: Supple no JVD Lungs: Clear to auscultation Heart: Regular rate and rhythm, no murmurs no gallops Abdomen: Soft non tender, no guarding. Extremities: No edema Neurologic: Alert oriented 3, no focal weakness. Psychiatrist: Normal mood, normal judgment. Skin: No rashes Lab data: Hemoglobin 10.5, WBC 6.28, platelet count 174,000 Chemistry profile disclose sodium 137, potassium 3.1, chloride 107, CO2 20, BUN 5, creatinine 0.2, calcium 7.6, iron 14, TIBC 207, transferrin 148, ferritin 242.63, vitamin B12 619 Assessment: 1. Abdominal pain in the lower quadrants with CAT scan of the findings suggestive of infectious/inflammatory etiology, unclear. Inflammatory bowel dis ease is a consideration. 2. COVID-19 viral infection 3. Leukocytosis improved 4. Fever 5. Sepsis Plan of care: 12/04/2019 1. IV fluids. 2. IV antibiotics consisting of Cefepime and Flagyl intravenously. 3. GI consultation requested with Dr. Garcia 4. DVT prophylaxis 5. Pain control 6. ID consultation requested. 7. Follow-up labs 8. Blood cultures 9. DVT prophylaxis 12/05/2019 Continue present care. ID consultation requested Lovenox 30 mg subcu every 12 hours Critical care consultation with Dr. Mehta
[2019-12-05] MEDS: CIPROFLOXACIN 400 MG/D5W 200ML 200 ML IV SCH (10:17)
[2019-12-05] MEDS ORDERED: POTASSIUM CHLORIDE 20 MEQ TAB CR PO ONE (10:30)
[2019-12-05] MEDS ORDERED: ENOXAPARIN SOD INJ 40 MG/0.4 ML SYR SC ONE (11:00)
--- NOTE | 2019-12-05 13:32 | NUR ---
INFECTIOUS DISEASE CONSULT NOTE DR MELGAR CC: abdominal pain 19-year-old lady who presented to emergency department complaining of lower abdominal pain which is been going on during the last day, associated with fever. Patient denies nausea, vomiting or diarrhea. Denies chest pain or shortness of breath. No history of inflammatory bowel disease. No rectal bleeding. Past medical history: Unremarkable medical history with no significant medical problems. Past surgical history: None Family history: Patient's mother is 38 years old in good health. Father is on his mid 40s and in good health. Does have 2 siblings which are healthy. Social history: No tobacco or alcohol abuse. Allergies: No known drug allergies that I am aware. Review of systems: Constitutional: No fever no chills Cardiovascular: No chest pain. Respiratory: No shortness of breath no hemoptysis GI: See present history. : No dysuria Neuro: No dizziness, no ataxia, no focal weakness Skin: No rashes Hematological system: No bruises Psych: No anxiety or depression Physical exam: Irregular patient alert oriented to person time place the patient was in no distress. Vital signs blood pressure 117/78, respiration 14, pulse 114, temperature 99.3 Constitutional: He is oriented to person, place, and time. He appears well-developed. HEENT: Head: Normocephalic and atraumatic. Cardiovascular: Regular rhythm, no murmurs, no rubs, no gallops. Pulmonary/Chest: Clear bilaterally, no rales, no rhonchi. Abdominal: Soft, nontender, bowel sounds positive and normal. No distention, no guarding, no rebound. Musculoskeletal: Normal range of motion. Extremities: No edema, no clubbing. Neurological: He is alert and oriented to person, place, and time. Skin: Skin is warm and dry. Psychiatric: He has a normal mood and affect. LABS: reviewed RADIOLOGY: reviewed IMPRESSION: 1. Colitis 2. Leukocytosis 3. previous COVID 19 infection PLAN: IV flagyl supportive care repeat labs will follow up in AM PT SEEN AND EVALUATED BY DR. MELGAR
[2019-12-05] MEDS ORDERED: CEFEPIME HCL 1 GM VIAL IV SCH (14:00)
[2019-12-05] MEDS: CEFEPIME 1GM/NS 0.9% 50 ML 50 ML IV SCH ×2 (14:39→21:15)
[2019-12-05] MEDS: IRON SUCROSE 100 MG in SODIUM CHLORIDE 0.9% 100 ML 100 ML IV SCH (18:05)
--- NOTE | 2019-12-05 19:05 | NUR ---
Received the patient in report.lyeing in the bed.stable condition.
[2019-12-06] VITALS (10 sets, daily range): BP systolic 102–121; BP diastolic 51–68
[2019-12-06] MEDS ORDERED: DEXAMETHASONE SOD PHOS 10 MG/1 ML VIAL IV STA (00:44)
--- NOTE | 2019-12-06 01:00 | NUR ---
TEMP NOTED 102.4.BP 105/54 MM OF HG. IS IN THE UNIT.RECEIVED NEW ORDERS FROM .NS IOOOML BOLUS STAT ADMINISTERED.CHEST X RAY TAKEN.ABG PUNCTURE DRAW DONE.LOVENOX 30MG STAT ADMINISTERED.MEDICATED WITH TYLENOL 65O MG AND DECADRON 10 MG IV.KEEP MONITOR THE PATIENT.
[2019-12-06] MEDS: ACETAMINOPHEN 325 MG TAB PO PRN ×3 (01:22→19:55)
[2019-12-06 01:23] LABS: ABG HCO3 15 mmol/L (22-26); ABG PCO2 24 mmHg (35-45); ABG PH 7.42 (7.35-7.45); ABG PO2 91 mmHg (80-105); ABG TCO2 16
[2019-12-06] MEDS ORDERED: ENOXAPARIN 30 MG/0.3 ML SYR SC ONE (01:30)
[2019-12-06] MEDS: PANTOPRAZOLE 40 MG 10ML VIAL IV SCH ×2 (01:32→13:19)
[2019-12-06] MEDS ORDERED: SODIUM CHLORIDE 0.9% 1000ML 1,000 ML IV STA (01:34)
--- NOTE | 2019-12-06 03:00 | NUR ---
v/s checked temp 99.8.bp 108/52 mmof hg.had a small amount of loose bowel movement.
--- NOTE | 2019-12-06 03:36 | Diagnostic Imaging Report ---
EXAMINATION: CHEST SINGLE (PORTABLE) INDICATION: Short of breath, evaluate for pneumonia COMPARISON: Abdominal CT 12/03/2019 FINDINGS: TUBES and LINES: None. LUNGS: Low lung volumes. Subtle perihilar/infrahilar lung haziness. No consolidations. PLEURA: No pleural effusion or pneumothorax. HEART AND MEDIASTINUM: The cardiomediastinal silhouette is unremarkable. BONES AND SOFT TISSUES: No acute osseous lesion. Soft tissues are unremarkable. UPPER ABDOMEN: No free air under the diaphragm. IMPRESSION: Subtle perihilar/infrahilar lung haziness could be due to atelectasis, pneumonia, or extrathoracic soft tissue attenuation. Lung evaluation limited due to single portable radiograph, low lung lungs, and patient body habitus. Signed by: Omar Obrien DO on 12/06/2019 3:33 AM
[2019-12-06] MEDS: SODIUM CHLORIDE 0.9% 1000ML 1,000 ML IV SCH ×4 (03:46→22:00)
[2019-12-06] MEDS: CEFEPIME 1GM/NS 0.9% 50 ML 50 ML IV SCH ×3 (05:10→22:00)
--- NOTE | 2019-12-06 05:48 | NUR ---
Rashes and redness noted at the back and both hands.but no itching.v/s stable.temp 98.1 Bp 121/67 mmof hg.Resting in the bed.
[2019-12-06] MEDS: METRONIDAZOLE 500MG/NS 100ML 100 ML IV SCH ×3 (06:08→21:00)
--- NOTE | 2019-12-06 06:35 | NUR ---
SPOKE WITH DR.NASSIF BECKER REGARDING CONSULTATION.
--- NOTE | 2019-12-06 06:59 | NUR ---
Report given to oncoming rn.stable condition.
--- NOTE | 2019-12-06 07:00 | NUR ---
RECEIVED PATIENT RESTING NO S/S OF DISTRESS. BED LOW, WHEELS LOCKED, SIDE RAILS X2. CALL LIGHT IN REACH. WILL CONTINUE TO MONITOR PATIENT.
[2019-12-06] MEDS: ENOXAPARIN 30 MG/0.3 ML SYR SC SCH ×2 (08:38→20:45)
--- NOTE | 2019-12-06 15:08 | Consultation ---
DATE OF CONSULTATION: Pulmonary Critical Care Consultation CHIEF COMPLAINT: Pain with inspiration and COVID-19 infection HISTORY OF PRESENT ILLNESS: The patient is a 19-year-old woman. She came in complaining of some nausea and vomiting and some abdominal pain. She also had some cough. She notes some pain with inspiration. She does not complain of any fevers. She was seen by Gastroenterology. She had a CT scan of the chest and abdomen that showed some ileitis. It was suggestive of possible inflammatory bowel disease. She is scheduled for a possible colonoscopy. PAST SURGICAL HISTORY: Noncontributory. PAST MEDICAL HISTORY: No prior asthma or respiratory problems. No prior cardiac problems. SOCIAL HISTORY: The patient has never been a smoker or drinker. ALLERGIES: NO KNOWN DRUG ALLERGIES. REVIEW OF SYSTEMS: The patient had some fevers at home. There was no headache. She had no neck pain. She is not complaining of any chest pain. She does have some pain with inspiration. She has some cough. She has some nausea and vomiting and some abdominal pain that has improved. She also had some diarrhea that is improved. PHYSICAL EXAMINATION: VITAL SIGNS: The patient is afebrile. The blood pressure is 104/54 and saturation is 98%. The pulse is 88. HEENT: Shows no facial swelling or erythema. CARDIAC: Reveals regular rate and rhythm with normal S1 and S2. LUNGS: Auscultation of lungs reveals clear breath sounds bilaterally. There is no wheezing. ABDOMEN: Soft and nontender. There is no rebound or guarding. EXTREMITIES: Shows no leg edema or calf tenderness. There is no cyanosis or clubbing. SKIN: Shows no rashes. NEUROLOGICAL: Shows no focal abnormalities. LABORATORY DATA: Potassium is 3.1. The BUN to creatinine ratio is normal. The carbon dioxide is 20. The albumin is 2.5. Hemoglobin is 10.5 and white blood cell count 6.2. The platelet count is 174. RADIOGRAPHIC DATA: Chest x-ray shows hazy infiltrates at the bases. IMPRESSION: 1. Viral pneumonia and COVID-19 infection. 2. Gastroenteritis and ileitis with nausea and vomiting. 3. Hypokalemia. 4. Anemia, unspecified. PLAN: 1. Complete IV hydration. 2. Continue antiemetics and monitoring of GI status. 3. Cough suppressants as needed. 4. IV fluids as needed. 5. Decadron should not be required because the patient is not using oxygen. MD QUINTON Johnson/ANSELMO /[id number]
--- NOTE | 2019-12-06 16:37 | NUR ---
INFECTIOUS DISEASE PROGRESS NOTE DISCUSSED WITH MEDICAL TEAM LABS SEEN hysical exam: Irregular patient alert oriented to person time place the patient was in no distress. Vital signs blood pressure 117/78, respiration 14, pulse 114, temperature 99.3 NO new complaints Constitutional: He is oriented to person, place, and time. He appears well-developed. HEENT: Head: Normocephalic and atraumatic. Cardiovascular: Regular rhythm, no murmurs, no rubs, no gallops. Pulmonary/Chest: Clear bilaterally, no rales, no rhonchi. Abdominal: Soft, nontender, bowel sounds positive and normal. No distention, no guarding, no rebound. Musculoskeletal: Normal range of motion. Extremities: No edema, no clubbing. Neurological: He is alert and oriented to person, place, and time. Skin: Skin is warm and dry. Psychiatric: He has a normal mood and affect. LABS: reviewed RADIOLOGY: reviewed IMPRESSION: 1. Colitis 2. Leukocytosis 3. previous COVID 19 infection await gi eval
[2019-12-06] MEDS: IRON SUCROSE 100 MG in SODIUM CHLORIDE 0.9% 100 ML 100 ML IV SCH (16:46)
--- NOTE | 2019-12-06 19:10 | NUR ---
Patient visited in room during nursing rounds. Patient alert and oriented x3. COVID positive. Ambulatory in room prn. Pt breaths on room air. Pt denies any discomfort or pain. On IVF (NS at 125ml/hr). Pt on scheduled IV antibiotics. Call hart within reach. Will monitor closely.
[2019-12-06] MEDS ORDERED: CHLORASEPTIC SPRAY 177 ML BTL MM PRN (19:30)
--- NOTE | 2019-12-06 19:30 | NUR ---
Called Dr. Whipple (via phone) and informed pt c/o sore throat and requested for medication. ordered Chloraseptic spray prn.
--- NOTE | 2019-12-06 19:55 | NUR ---
Pt has fever (temp = 103.1 F). Pt given Tylenol 650mg PO. Will monitor pt closely.
--- NOTE | 2019-12-06 22:29 | NUR ---
Nurse (Zaire) spoke with patient's father (Sacha) over phone. Sacha's questions about her daughter's status and plan of care were answered to his satisfaction.
[2019-12-07] VITALS (13 sets, daily range): BP systolic 90–112; BP diastolic 44–60
--- NOTE | 2019-12-07 00:40 | NUR ---
Dr. Larry Caballero came and saw pt. Patient told Dr. Caballero that she had about 10 loose bowel movements since start of overnight stocker. Pt also quite short of breath (95% on Rm air). Pt placed on 2L NC for extra air. Dr Caabllero ordered stat labs (CBC, CMP) and abd x-ray and CXR STAT. Will wait for results.
[2019-12-07] MEDS ORDERED: DIPHENOXYLATE/ATROPINE TAB PO ONE ×2 (01:00→03:45)
--- NOTE | 2019-12-07 01:00 | NUR ---
Attempted to call Dr. Deborah Singh to notify (per Dr. Seema Caballero's request) that patient had some episode of shortness of breath on ambulation. Pt temporarily placed on 2L NC. O2 sat at 98%. Pt HR at 125. Addendum: 12/07/19 at 0234 by Zaire Cavazos RN No answer from Dr. Deborah Singh. Will monitor O2 of pt closely.
[2019-12-07] MEDS: PANTOPRAZOLE 40 MG 10ML VIAL IV SCH ×2 (01:20→15:04)
[2019-12-07] MEDS: ACETAMINOPHEN 325 MG TAB PO PRN ×3 (01:20→20:51)
[2019-12-07 01:33] LABS: BASOPHILS # (AUTO) 0.2 (0.0-0.1); BASOPHILS % 0.6 % (0.0-1.0); EOSINOPHILS % 0.1 % (0.0-6.0); HEMATOCRIT 30.9 % (34.2-44.1); LYMPHOCYTES # (AUTO) 0.7 (1.0-3.2); LYMPHOCYTES % 2.4 % (18.0-39.1); MEAN CORPUSCULAR HEMOGLOBIN 31.8 pg (28-32); MEAN CORPUSCULAR HGB CONC 35.6 g/dL (31-35); MEAN CORPUSCULAR VOLUME 89.3 fL (81-99); MONOCYTES # (AUTO) 0.5 (0.2-0.8); MONOCYTES % 1.9 % (4.4-11.3); NEUTROPHILS # (AUTO) 24.5 (2.1-6.9); PLATELET COUNT 177 x10e3/uL (140-360); RED BLOOD COUNT 3.46 x10e6/uL (3.6-5.1); RED CELL DISTRIBUTION WIDTH 13.1 % (11.7-14.4)
--- NOTE | 2019-12-07 01:38 | NUR ---
Pt given Lomotil x1 and O2 sat at room air now 100%. Dr. Davide Caballero aware.
[2019-12-07 01:50] LABS: ALANINE AMINOTRANSFERASE 15 IU/L (0-55); ALBUMIN 2.1 g/dL (3.5-5.0); ALBUMIN/GLOBULIN RATIO 0.6 (0.8-2.0); ALKALINE PHOSPHATASE 76 IU/L (40-150); ANION GAP 11.7 mmol/L (8-16); BLOOD UREA NITROGEN 5 mg/dL (7-26); BUN/CREATININE RATIO 6 (6-25); CALCIUM 7.6 mg/dL (8.4-10.2); CARBON DIOXIDE 20 mmol/L (22-29); CHLORIDE 109 mmol/L (98-107); CREATININE, SERUM 0.78 mg/dL (0.57-1.11); EST GLOMERULAR FILTRATION RATE > 60 ML/MIN (60-); GLUCOSE 142 mg/dL (74-118); SODIUM 138 mmol/L (136-145)
[2019-12-07 01:53] LABS: POTASSIUM 2.7 mmol/L (3.5-5.1)
--- NOTE | 2019-12-07 02:05 | NUR ---
Patient was escorted by [employer]) via wheelchair to radiology department for a STAT CXR and STAT Abdominal X-ray. Pt left unit in stable condition.
--- NOTE | 2019-12-07 02:15 | NUR ---
Patient back in room after CXR and abd x-ray. Pt had another loose bowel movement. IVF re-started.
--- NOTE | 2019-12-07 02:57 | Diagnostic Imaging Report ---
EXAMINATION: CHEST 2 VIEWS INDICATION: ^sob ^[id number] ^0200 ^Y COMPARISON: Radiograph dated 12/06/2019. FINDINGS: TUBES and LINES: None. LUNGS: Bilateral patchy and hazy opacities in the mid and lower lungs. PLEURA: No pneumothorax. Small pleural effusions bilaterally. HEART AND MEDIASTINUM: The cardiomediastinal silhouette is unremarkable. BONES AND SOFT TISSUES: No acute osseous lesion. Soft tissues are unremarkable. UPPER ABDOMEN: No free air under the diaphragm. IMPRESSION: Bilateral airspace opacities concerning for multifocal pneumonia/pneumonitis with small pleural effusions. Signed by: Lalo Newberry MD on 12/07/2019 2:53 AM
--- NOTE | 2019-12-07 02:59 | Diagnostic Imaging Report ---
EXAM: Abdomen Radiograph 1 View(s) INDICATION: ^abd pain ^[id number] ^0200 ^Y COMPARISON: None FINDINGS: No lines or tubes. Normal volume of stool in the colon. No dilated loops of small bowel. No abnormal abdominal calcifications.. No pneumoperitoneum. No acute osseous abnormality. Mild degenerative changes in the lumbar spine and pelvis. IMPRESSION: Nonobstructive bowel gas pattern. Signed by: Lalo Newberry MD on 12/07/2019 2:55 AM
[2019-12-07] MEDS ORDERED: POTASSIUM CHLORIDE 20 MEQ TAB CR PO STA (03:14)
--- NOTE | 2019-12-07 03:17 | NUR ---
Called Dr. Seema Caballero and informed of results of CBC, CMP, abd x-ray and CXR. Informed MD of low potassium (2.7) and low albumin. MD ordered 40meq KCL tab x4 doses total (160 meq in total) and 25gm Albumin IV piggyback x5.
[2019-12-07] MEDS ORDERED: ALBUMIN 25% 12.5GM 0.25 GM/ML BTL IV STA (03:24)
--- NOTE | 2019-12-07 03:24 | NUR ---
Second attempt calling Dr. Deborah Singh (per Dr. Seema Caballero's request) and left message about pt initially having shortness of breath on ambulation but now 99%-100% on Rm air with tachypnea (RR of 23). Left message that STAT CXR was done (per Dr. Seema Caballero order). Results mentioned on message. Awaiting on MD call back. Will pass on information to dayshift nurse.
[2019-12-07] MEDS ORDERED: ALBUMIN 25% 12.5GM 0.25 GM/ML BTL IV ONE ×4 (04:00→22:00)
[2019-12-07] MEDS: CEFEPIME 1GM/NS 0.9% 50 ML 50 ML IV SCH ×3 (05:40→22:26)
[2019-12-07] MEDS ORDERED: POTASSIUM CHLORIDE 20 MEQ TAB CR PO ONE (06:00)
[2019-12-07] MEDS: METRONIDAZOLE 500MG/NS 100ML 100 ML IV SCH ×3 (06:30→22:26)
--- NOTE | 2019-12-07 06:44 | NUR ---
Spoke to answering service (Radha) to page Dr. Forbes to notify of WBC of 27.26 this morning. Awaiting on MD call back. This information will be relayed to incoming dayshift nurse.
--- NOTE | 2019-12-07 07:00 | NUR ---
RECEIVED PATIENT RESTING NO S/S OF DISTRESS. BED LOW, WHEELS LOCKED, SIDE RAILS X2. CALL LIGHT IN REACH. WILL CONTINUE TO MONITOR PATIENT.
[2019-12-07] MEDS ORDERED: POTASSIUM CHLORIDE 20 MEQ TAB CR PO SCH ×2 (08:00→10:00)
[2019-12-07] MEDS: ENOXAPARIN 30 MG/0.3 ML SYR SC SCH (08:21)
--- NOTE | 2019-12-07 09:40 | NUR ---
SPOKE WITH DR. MELGAR REGARDING PATIENT STATUS. NEW ORDERS GIVEN AND IMPLEMENTED.
[2019-12-07 10:20] LABS: BASOPHILS # (AUTO) 0.1 (0.0-0.1); BASOPHILS % 0.4 % (0.0-1.0); EOSINOPHILS % 0.1 % (0.0-6.0); HEMATOCRIT 26.1 % (34.2-44.1); HEMOGLOBIN 9.3 g/dL (12.0-16.0); LYMPHOCYTES # (AUTO) 0.6 (1.0-3.2); LYMPHOCYTES % 2.6 % (18.0-39.1); MEAN CORPUSCULAR HEMOGLOBIN 30.8 pg (28-32); MEAN CORPUSCULAR HGB CONC 35.6 g/dL (31-35); MEAN CORPUSCULAR VOLUME 86.4 fL (81-99); MONOCYTES # (AUTO) 0.2 (0.2-0.8); MONOCYTES % 0.7 % (4.4-11.3); NEUTROPHILS # (AUTO) 21.9 (2.1-6.9); NEUTROPHILS % 91.6 % (38.7-80.0); PLATELET COUNT 175 x10e3/uL (140-360); RED BLOOD COUNT 3.02 x10e6/uL (3.6-5.1); RED CELL DISTRIBUTION WIDTH 13.1 % (11.7-14.4)
[2019-12-07 10:40] LABS: ANION GAP 12.9 mmol/L (8-16); BLOOD UREA NITROGEN 6 mg/dL (7-26); BUN/CREATININE RATIO 8 (6-25); CALCIUM 7.5 mg/dL (8.4-10.2); CARBON DIOXIDE 19 mmol/L (22-29); CHLORIDE 111 mmol/L (98-107); CREATININE, SERUM 0.79 mg/dL (0.57-1.11); EST GLOMERULAR FILTRATION RATE > 60 ML/MIN (60-); GLUCOSE 124 mg/dL (74-118); SODIUM 140 mmol/L (136-145)
[2019-12-07 10:42] LABS: POTASSIUM 2.9 mmol/L (3.5-5.1)
[2019-12-07] MEDS ORDERED: SODIUM CHLORIDE 0.9% 50ML 50 ML ONE (10:53)
[2019-12-07] MEDS ORDERED: IOPAMIDOL 370 MG/ML 200 ML INFUS..BTL INJ ONE (10:53)
[2019-12-07 10:59] LABS: AMYLASE 23 U/L (25-125); LIPASE 10 U/L (8-78)
[2019-12-07 11:32] LABS: BAND NEUTROPHILS % (MANUAL) 10 %; LYMPHOCYTES % (MANUAL) 2 % (19-48); MONOCYTES % (MANUAL) 1 % (3.4-9.0); NEUTROPHILS % (MANUAL) 87 % (40-74); PLATELET ESTIMATE ADEQUATE; PLATELET MORPHOLOGY COMMENT NORMAL; RBC MORPHOLOGY COMMENT NORMAL
[2019-12-07] MEDS: SODIUM CHLORIDE 0.9% 1000ML 1,000 ML IV SCH (11:46)
--- NOTE | 2019-12-07 12:01 | Diagnostic Imaging Report ---
CT of the chest. Comparison: None Clinical History: Rule out pulmonary embolism Technique: Helical CT scan of the chest was performed from just above the thoracic inlet through the adrenal glands. Intravenous contrast administration was utilized. Oral contrast administration was not utilized Thin collimation scanning through the pulmonary arteries was performed in the early phase. Coronal MIP reformations were obtained. This was followed by helical CT through the lung bases to the proximal thighs. Coronal and sagittal reconstructions were generated from the raw data. Multiple images were submitted for interpretation. This exam was performed according to our departmental dose-optimization program which includes automated exposure control, adjustment of the mA and/or kV according to patient size Discussion: Technical quality: The imaging through the pulmonary arteries was suboptimally delayed. There is suboptimal peak opacification of the pulmonary arteries and the presence of contrast medium in the pulmonary veins and aorta. This interferes with the sensitivity of this exam. The main pulmonary pulmonary artery is 31 mm in size. This is above the upper limit of expected normal. The pulmonary arteries are without any filling defect all the way to the segmental branches. There is relative enlargement of the right ventricle. This suggests right heart strain. The left ventricle is unremarkable. All segments of the thoracic aorta are unremarkable. Lung jimenez and pleura: There is presence of bilateral groundglass opacities in the lungs. There is presence of consolidation in the lower lobes bilaterally and also subsegmental consolidation in the lingular lobe and right middle lobe. This is mostly in the dependent portion. It could represent compressive or resorptive atelectasis and/or pneumonia. There is presence of bilateral pleural effusions of moderate size, right slightly more than left. There is no pneumothorax. Central airways: To the extent seen are unremarkable. Pulmonary genoveva: Normal Mediastinum: Unremarkable Cardiac chambers and pericardium: Described above. There is no pericardial effusion. Systemic great vessels: Unremarkable Thyroid: Unremarkable Lymph nodes: No lymphadenopathy Azygos vein: Unremarkable The esophagus: Normal. Thoracic duct: Unremarkable Breasts: Unremarkable Axilla: Unremarkable Lower neck: Unremarkable. Liver: Unremarkable Spleen: Unremarkable Pancreas: Unremarkable Biliary tree and gallbladder: Unremarkable Adrenal glands: Unremarkable Kidneys and ureters: Unremarkable Vasculature: Unremarkable Lymph nodes: No lymphadenopathy Bowel: Small amount of radiopaque material in the gastric fundus on the. Some distended loops of small bowel within normal limits. Minimal thickening of approximately 4-5 mm of the sigmoid colon wall suggesting presence of infection, inflammation or ischemia of the sigmoid colon. Colon otherwise is unremarkable. Pelvis: Urinary bladder is unremarkable. Internal genitalia unremarkable. Pelvic wall unremarkable. Peritoneum: Small amount of ascites especially noticeable in the pelvic cul-de-sac. Perineal compartments: unremarkable. Fluid: As above. Bones: Unremarkable Body wall: Unremarkable Impression: 1. No evidence of acute pulmonary embolism on this exam. There is apparent enlargement of the main primary artery with suggestion of right heart strain pattern. Clinical and echocardiographic correlation is recommended. There is presence of bilateral pleural effusions and bilateral airspace opacities that could represent atelectasis and/or pneumonia as described. 2. Colonic wall thickening in the sigmoid colon that could represent infection, inflammation, unlikely ischemia. Signed by: Rahat Carmichael MD on 12/07/2019 11:58 AM
--- NOTE | 2019-12-07 12:05 | Diagnostic Imaging Report ---
Please see the report with CT of the abdomen. Signed by: Rahat Carmichael MD on 12/07/2019 12:02 PM
[2019-12-07] MEDS ORDERED: LEVOFLOXACIN 750MG/D5W 150ML 150 ML IV SCH (13:00)
[2019-12-07] MEDS ORDERED: DEXAMETHASONE SOD PHOS INJ 4 MG/ML VIAL IV SCH ×2 (13:00→21:00)
[2019-12-07] MEDS ORDERED: LACTATED RINGER'S 1,000 ML INJ SCH (13:15)
[2019-12-07] MEDS ORDERED: HEPARIN 25,000 UNIT 1,100 UNIT in DEXTROSE 5% 250ML 250 ML IV SCH (13:30)
--- NOTE | 2019-12-07 13:48 | Progress Note ---
DATE: SUBJECTIVE: The patient started having more trouble breathing last night. Her oxygen has been increased to 5 L. She notes some tachypnea and pain with inspiration. PHYSICAL EXAMINATION: VITAL SIGNS: Blood pressure is 112/58 and the heart rate is 120. Temperature is 102.6. The saturation is 93% on 5 L. HEENT: No facial swelling or erythema. The oropharynx is normal. LYMPHATIC: No submandibular, cervical, or supraclavicular adenopathy. CARDIAC: Regular rate and rhythm with normal S1, S2. LUNGS: Auscultation of lungs reveals crackles at the bases. There is no wheezing. ABDOMEN: Soft, nontender. There is no rebound or guarding. EXTREMITIES: No leg edema or calf tenderness. There is no cyanosis or clubbing. SKIN: No rashes. NEUROLOGICAL: No focal abnormalities. LABORATORY DATA: Potassium is 2.9. BUN to creatinine ratio is normal. Carbon dioxide is and the chloride is 111. White blood cell count is 23.8, hemoglobin is 9.3. The platelet count is 175. RADIOGRAPHIC DATA: CT scan of the abdomen, chest and pelvis shows no pulmonary embolism, although there is some enlargement of the pulmonary artery with possible right heart strain. There is some bilateral airspace opacities as well as small pleural effusions. There is also thickening of the colonic wall in the sigmoid area suggestive of colitis. IMPRESSION: 1. Colitis and gastroenteritis. 2. Resolving viral pneumonia and coronavirus disease-19 infection. 3. Possible elevated pulmonary artery pressures. 4. Leukocytosis. 5. Anemia. PLAN: 1. The patient will be switched from Lovenox to IV heparin. 2. Echocardiogram and venous duplex as soon as possible. 3. Continue current antibiotics as recommended by Infectious Disease. 4. Switch from normal saline to lactated Ringer's to prevent worsening hyperchloremic acidosis. Case discussed with the patient, Dr. Whipple, Dr. Forbes, and nursing. Werner Singh MD [facility]/MODL /[id number]
--- NOTE | 2019-12-07 14:16 | NUR ---
PATIENT TRANSFERRED TO ICU. NEW ORDERED MEDICATIONS RELAYED TO RECEIVING NURSE.
[2019-12-07] MEDS ORDERED: HEPARIN 25,000 UNIT DRIP IV ONE (14:38)
[2019-12-07] MEDS ORDERED: VANCOMYCIN 1GM/NS 250 ML 250 ML IV SCH (15:00)
--- NOTE | 2019-12-07 16:13 | Progress Note ---
DATE: SUBJECTIVE: Ms. Burroughs became worse today. She desaturated, became tachycardic. The patient is being moved to the intensive care unit. I have discussed the case with Intensive Care, with Internal Medicine, with the patient, and Cardiology as well as Radiology. The patient became short of breath. She was on 5 L. PHYSICAL EXAMINATION: VITAL SIGNS: Her blood pressure is 112/58, heart rate 120, and temperature 102. HEENT: Normocephalic. Not icteric. NECK: Supple. CHEST: Crackles at the bases. HEART: S1, S2. ABDOMEN: Soft. Bowel sounds present. EXTREMITIES: There is no edema. There is no tenderness. SKIN: There is erythematous rash noted on the back. LABORATORY DATA: Sodium was 2.9. Her white count went up to 23.8, hemoglobin 9.3, and platelet count is 175. Her CAT scan showed that she had enlarged right ventricle and enlarged pulmonary artery. She has colitis, but it is not severe by CAT scan and I reviewed while the study was not the best, there was no clear-cut DVT that could be seen. Her white count went up to 27.26, hemoglobin 11. Her sodium 140, potassium 2.9, and creatinine 0.79. Her COVID was positive, but she was telling me that she had COVID 3 weeks ago and the patient got better and she had a negative COVID, it was going to be discharged home, but she came with 2 days illness now. She is currently on cefepime 1 g q.8h. and Flagyl 500 mg q.8h. Discussed with Critical Care. We are going to put her on heparin drip. IMPRESSION: 1. Respiratory failure. Moved to ICU. Right side heart is draining, concerned about pulmonary embolism. We will get a Doppler. We will get echocardiogram. Discussed with Cardiology. 2. Colitis, gastroenteritis. Continue cefepime and Flagyl. 3. History of viral pneumonia with coronavirus disease-19 more than three weeks ago. 4. Leukocytosis. We will follow. Discussed with the medical team. MD DEEPTI Tirado/ANSELMO /[id number]
--- NOTE | 2019-12-07 17:13 | NUR ---
Events noted. The patient did develop acute respiratory failure. The patient's CT of the chest was consistent with right ventricular strain. The patient's condition likely related to COVID-19. The patient is fully anticoagulated dexamethasone has been ordered. The patient was noted to have an inflammatory infectious process in the calf. The patient could have ischemic bowel. The patient looks toxic. Condition of the patient has been discussed today with pulmonary, ID and mattress stripper Dr. Parker Patient examination,. Patient alert oriented to person time place. The patient is clearly on respiratory distress. Vitals: Blood pressure 96/34, respiration 26, pulse 133, temperature 100.1 HEENT: Head: Normocephalic and atraumatic. Cardiovascular: Regular rhythm, no murmurs, no rubs, no gallops. Pulmonary/Chest: Clear bilaterally, no rales, no rhonchi. Abdominal: Soft, nontender, bowel sounds positive and normal. No distention, no guarding, no rebound. Musculoskeletal: Normal range of motion. Extremities: No edema, no clubbing. Neurological: He is alert and oriented to person, place, and time. Skin: Skin is warm and dry. Psychiatric: He has a normal mood and affect. Data: Hemoglobin 9.3, WBC 23.87, platelet count 125,000 Sodium 140, potassium 2.9, chloride 111, CO2 19, BUN 12.9, creatinine 0.79, glucose 124 CT of the chest results noted Impression: 1. No evidence of acute pulmonary embolism on this exam. There is apparent enlargement of the main primary artery with suggestion of right heart strain pattern. Clinical and echocardiographic correlation is recommended. There is presence of bilateral pleural effusions and bilateral airspace opacities that could represent atelectasis and/or pneumonia as described. 2. Colonic wall thickening in the sigmoid colon that could Represent Infection, inflammation, unlikely ischemia. Assessment: Acute respiratory failure Acute arterial pulmonary hypertension Bilateral pleural effusions COVID-19 pneumonia Colonic wall thickening in the sigmoid colon that could represent infection. Ischemic bowel is unlikely Elevated d-dimer Leukocytosis Plan of CARE: IV fluids. Broad-spectrum biotics. Full anticoagulation is being implemented Dexamethasone Cardiology consultation. Request renal consultation
[2019-12-07] MEDS ORDERED: ALBUMIN 25% 25GM 100ML 100 ML IV ONE ×2 (17:15→22:00)
[2019-12-07] MEDS ORDERED: DEXAMETHASONE SOD PHOS 10 MG/1 ML VIAL IV SCH (18:45)
--- NOTE | 2019-12-07 19:18 | NUR ---
PULMONARY *rapidly worsening hypoxemia rapidly worsening tachycardia fevers known COVID-19 11/16/19 per father imp: either bacterial sepsis (common, but patients aren't as initially refractory) vs cytokine storm syndrome (therefore favored) rec: Treatment for possible bacterial sepsis (?UTI, ?pneumonia, ?GI) Initial steroids at cytokine storm dosing -check IL-6 level, CRP, ferritin +/- ldh -consideration for plasma exchange if treatment refractory high mortality / morbidity condition. Thank you very much.
[2019-12-07 22:30] LABS: INR 1.74; PROTHROMBIN TIME 21.4 seconds (11.9-14.5)
[2019-12-07 22:34] LABS: PARTIAL THROMBOPLASTIN TIME 104.6 seconds (23.8-35.5)
--- NOTE | 2019-12-07 22:40 | Consultation ---
DATE OF CONSULTATION: 12/07/2019 Cardiology Consultation CONSULTING PHYSICIAN: Carson Moncada MD, Interventional Cardiology. REASON FOR CONSULTATION: Shortness of breath, tachycardia. HISTORY OF PRESENT ILLNESS: A 19-year-old woman with no reported past medical history, presents with COVID-[address] chest as well as pleural effusion and complaints of abdominal discomfort. Found to have bowel inflammatory changes on imaging studies. She describes worsening labored breathing over the last 6 hours. She is being transferred to Intensive Care unit for further care. On Telemetry at bedside, in sinus tachycardia. Echocardiogram performed at bedside, reviewed LV systolic function remains preserved with normal regional wall motion. The right ventricle is dilated, however. REVIEW OF SYSTEMS: A 12-system review negative except for as noted above. ALLERGIES: NO KNOWN DRUG ALLERGIES. SOCIAL HISTORY: Negative for smoking, alcohol, or drugs. FAMILY HISTORY: Noncontributory. PHYSICAL EXAMINATION: VITAL SIGNS: Temperature 102.6, heart rate 140, blood pressure 112/58, respiratory rate 20, and O2 saturation 93%. BMI 28. GENERAL: In acute distress, acutely ill-looking. Mucosa, dry. NECK: No JVD. Supple. CHEST: With rales and decreased breath sounds. Tachypneic. CARDIOVASCULAR: Regular rate and rhythm. Normal S1, S2. Systolic ejection murmur 1/6. No S3. No S4. Tachycardic. ABDOMEN: Soft, mildly tender. No rebound. No guarding. Bowel sounds positive. EXTREMITIES: No edema. Warm distal extremities. CARDIOVASCULAR MEDICATIONS: Reviewed. 1. Potassium chloride 20 mEq and x1. 2. Albumin x1. 3. Cefepime. 4. Metronidazole. 5. Iron sucrose. STUDIES: Reviewed. Sodium 140, potassium 2.9, chloride 111, bicarbonate 19, BUN 6, creatinine 0.7, glucose 124. White blood cells 23.8, trending up, hemoglobin 9.3, and platelets 175. AST 16, ALT 15, alkaline phosphatase 76. ASSESSMENT AND PLAN: A 19-year-old woman, who presents with COVID-19 infection, community-acquired pneumonia, pleural effusions, tachycardic, hypokalemic, anemic, inflammatory gut findings and metabolic acidosis observed on studies. Differential diagnosis includes severe sepsis with developing metabolic acidosis, ischemic gut, pulmonary embolism within differential, however, initial imaging studies does not confirm this diagnosis. Signs of elevated pulmonary pressures indirectly observed due to dilated right ventricle. RECOMMENDATIONS: 1. IV fluid hydration and sepsis protocol. Obtain lactic acid, troponin, BNP. 2. An empiric treatment with IV heparin for now. 3. Surgical consultation, concern about embolic event association with COVID19, raised concern for ischemic gut as well as pulmonary embolus. Overall, guarded prognosis. Replete electrolytes. Carson Moncada MD [facility]/MODL /[id number] MTDD
--- NOTE | 2019-12-08 | NUR ---
AT 2335 PATIENT LEFT UNIT TO BE TRANSFERRED TO [facility], [address] BED 10. ACCEPTING PHYSICIAN IS DR PATRICIA DOMINGO. REPORT WAS CALLED AND ALL QUESTIONS ANSWERED. PATIENT IS AGREEABLE TO TRANSFER. HR REMAINS IN THE 140'S, RR 42, LABORED BREATHING. SHE IS FATIGUED AND WEAK, FEBRILE. HEPARIN GTT @ 9.5ML/HR AND LR @ 100 RUNNING AT TIME OF TRANSFER. HÉCTOR (PATIENTS FATHER) WAS NOTIFIED OF TRANSFER AT 2315.
--- NOTE | 2019-12-08 01:11 | Consultation ---
DATE OF CONSULTATION: 12/07/2019 Pulmonary Critical Care Medicine Consult CHIEF COMPLAINT: Worsening status. HISTORY OF PRESENT ILLNESS: Ms. Burroughs is a pleasant 19-year-old female with worsening clinical status. The patient was known to have coronavirus about three weeks ago. Per the family on November 16, 2019, her test came back positive. The patient with presentation on December 03, 2019, with lower abdominal pain for one day. The patient was noted to have initial heart rate of 88 to 114 beats per minute. The patient with fevers of 102.7. Recently, the patient with 97% oxygen saturation on room air. The patient with white count 27,000. CRP level 228. Ferritin level 242. The patient with continuous fevers. Today, her heart rate is increasing and it is steadily in 140s beats per minute range. Her oxygen needs have gone up and now she is on 5 L/minute by nasal cannula oxygen. She is starting to become little bit short of breath. She goes in for emergency. IMAGING DATA: Abdominopelvic CT demonstrates no evidence of defined acute perforation abdomen. There is colonic wall thickening in the sigmoid colon that could represent infection, inflammation. Furthermore, the patient on CT chest with bilateral small pleural effusions, probably a 25 mm main pulmonary artery trunk, some residual atelectasis plus or minus pneumonia. Preliminary echo was reportedly negative. At this point, I am consulted for a second opinion. PAST MEDICAL HISTORY: No prior respiratory issues. MEDICATIONS: Medication list reviewed per the chart record. ALLERGIES: NO KNOWN DRUG ALLERGIES. SOCIAL HISTORY: No smoking. No drinking. No drugs. The patient is close to her family. FAMILY HISTORY: Noncontributory. REVIEW OF SYSTEMS: No bleeding, other detailed 10-system review unremarkable except for what is documented above. OBJECTIVE: VITAL SIGNS: Noting she was recently febrile with 103.1 temperature maximum so far today. Other vitals noted. GENERAL: In no acute distress. Alert and calm, although she is very anxious, mildly short of breath. HEENT: Normocephalic and atraumatic. NECK: Supple. Throat midline. ABDOMEN: Mostly soft. Non-surgical discomfort only. Mild discomfort. LABORATORY DATA: Labs reviewed per the chart record. 24 white count, 26 hematocrit, 175 platelets. D-dimer 9.13, creatinine 0.7. Albumin 2.5. Urinalysis with 11-20 wbc's. IMPRESSION AND PLAN: 1. Syndrome worsening tachycardia, not otherwise specified. High differential diagnosis includes cytokine storm syndrome, sepsis other. 2. Possible urinary tract infection. 3. Possible sigmoid colon thickening, which could represent inflammation or infection. 4. Worsening hypoxemia, pneumonitis, COVID-19 related. 5. Hypokalemia. 6. Very elevated biomarkers, CRP 228. Continue some IV fluid. Cautious with oxygenation. Check stat IL-6 level as well as CRP, ferritin with or without LDH. Give dexamethasone to support possibility of storm syndrome. Continue antibiotics for possibility of bacterial sepsis. The patient with high morbidity/mortality condition. I discussed with her family. HCG test was negative on December 03, 2019. I discussed with family. There will be consideration transfer the patient to [facility] Center. If there is no rapid improvement, then consideration can be made for plasma exchange. Thank you very much, Dr. Wihpple for allowing me a chance to participate in care of Ms. Burroughs. Please do not hesitate to call if can help in any way. Greater than 30 minutes in direct care and coordination today on this date. MD CLIFF Arambula/MODL /[id number]
[2019-12-08] MEDS ORDERED: ALBUMIN 25% 25GM 100ML 100 ML IV ONE (04:00)
[2019-12-08] MEDS ORDERED: ALBUMIN 25% 12.5GM 0.25 GM/ML BTL IV ONE (04:00)
== END 2019-12-07 23:35 | disposition short-term general hospital (02) | DRG 177 ==
LOC: ER 08:00 → ERHOLD 10:42 → ER 12:21 → MED/SURG 12:50 → IMCU 12-04 21:35 → OBSVTOIN 12-06 07:58 → COVIDICU 12-07 13:57
PROVIDERS: ADMIT Internal Medicine; ATTEND Internal Medicine
PROC: 8E0ZXY6 Isolation (ICD-10-PCS; principal; 2019-12-06)
DX: U07.1 COVID-19 (principal); J12.89 Other viral pneumonia; R65.20 Severe sepsis without septic shock; A41.9 Sepsis, unspecified organism; J96.01 Acute respiratory failure with hypoxia; N39.0 Urinary tract infection, site not specified; E87.2 Acidosis; K52.9 Noninfective gastroenteritis and colitis, unspecified; E87.6 Hypokalemia; D64.9 Anemia, unspecified; I27.20 Pulmonary hypertension, unspecified
CPT/HCPCS: 36415; 36600; 71045; 71046; 71260; 74019; 74177; 80048; 80053; 81001; 82150; 82607; 82728; 82746; 82805; 82948; 83540; 83605; 83615; 83690; 83880; 83993; 84436; 84443; 84466; 84484; 84702; 85025; 85045; 85379; 85610; 85651; 85730; 86140; 86256; 86671; 87040; 87045; 87086; 87177; 93306; 93970; 99284; G0378; J0692; J1100; J1650; J1756; J1885; J2270; J2405; J3370; J7030; J7121; P9047; Q9967; U0002